=== PATIENT | female | born 1950 | race Caucasian/White ===

== ENCOUNTER 2022-12-21 07:07 | Inpatient (IN) ==
[2022-12-21] MEDS ORDERED: SODIUM CHLORIDE 500 ML IV STA ×2 (07:24→08:37)
--- NOTE | 2022-12-21 07:31 | ED.PDOC ---
General ED Provider: Dr. RODOLFO SARAVIA DO Chief Complaint: Fever Stated Complaint: Patient is a 72 yo F here for body aches and sob Patient arrives afebrile with tachycardia 115 and tachypnea 21 RR and elevated BP Children at bedside report she appeared weak and more ill than a typical cold and brought her to the ED She has a PMHX of non insulin dependent DM2, HTN She deneis falls or injuries She denies chest pressure or chest pain, she admits sob No recent surgeries NKDA Patietn speaking in full sneteces on room air spo2 97% She linda sick contacts and spends most of her time at home caring for with cognitive decline Patient stable will fluid challenge tachycardia gently due to sob and elevated bp Time Seen by Provider: 12/21/22 07:22 Information Source: Patient Primary Care Provider: SATYA ARIAS Nursing and Triage Documentation Reviewed and Agree: Yes Review of Systems Review Of Systems Constitutional: Reports Chills, Fever and Weakness Eyes: Denies Blurred vision or Foreign body sensation Ears, Nose, Mouth, Throat: Denies Ear pain or Nose discharge Respiratory: Reports Cough and Shortness of Breath; Denies Wheezing Cardiac: Denies Chest pain or Syncope GI: Denies Constipated or Diarrhea : Denies Dysuria or Discharge Musculoskeletal: Denies Back pain or Joint pain Skin: Denies Bruising or Change in color Neurological: Reports No symptoms Endocrine: Reports No symptoms Hematologic/Lymphatic: Reports No symptoms All Other Systems: Reviewed and Negative PFSH Female Reproductive History Menstrual Hx Hysterectomy: No Hx Tubal Ligation: No Physical Exam Physical Exam Appearance: Reports Well-appearing, Well-nourished and Obese Ill-appearing: Not Applicable Pain Distress: Not Applicable Eyes: Reports MIKEY and EOMI ENT: Reports Ears normal and Nose normal Neck: Supple Respiratory: Reports Airway patent and Breath sounds clear; Denies Crackles, Rhonchi or Wheezes Cardiovascular: Reports Pulses normal and Tachycardia GI/: Reports Soft and Nontender Musculoskeletal: Reports Normal strength and ROM intact Skin: Reports Warm and Dry Neurological: Reports Sensation intact and Motor intact Psychiatric: Reports Affect appropriate and Mood appropriate Interpretation EKG Interpretation EKG Interpretation By: ED Physician Time of EKG #1: 07:31 Rate: Tachy Interpretation: Sinus tachycardai rate 126 no stemi qt wnl Critical Care Note Critical Care Note Total Critical Care Time (mins): 0 Course Course 12/21/22 07:25 12/21/22 07:25 Orders, Labs, Meds: Lab Review 12/21/22 12/21/22 12/21/22 07:25 07:38 08:45 WBC 14.37 H RBC 4.76 Hgb 12.7 Hct 39.1 MCV 82.1 MCH 26.7 L MCHC 32.5 RDW Coeff of Scarlet 14.0 Plt Count 283 Immature Gran % (Auto) 0.5 Neut % (Auto) 87.0 H Lymph % (Auto) 8.4 L [place] % (Auto) 3.3 Eos % (Auto) 0.4 Baso % (Auto) 0.4 Neut # (Auto) 12.5 H Lymph # (Auto) 1.2 [place] # (Auto) 0.5 Eos # (Auto) 0.1 Baso # (Auto) 0.1 Immature Gran # (Auto) 0.1 Sodium 136.5 Potassium 3.59 Chloride 105.3 Carbon Dioxide 19.7 L Anion Gap 15.09 BUN 12.7 Creatinine 0.66 Estimated GFR (MDRD) 89.00 BUN/Creatinine Ratio 19.24 Glucose 185.4 H Lactic Acid 2.97 H 2.58 H D Calcium 9.45 Total Bilirubin 1.42 H AST 52.1 H ALT 37.0 H Alkaline Phosphatase 105.4 Troponin I < 0.012 Total Protein 8.13 Albumin 4.60 Globulin 3.53 Albumin/Globulin Ratio 1.30 Influ A Molecular Assay Negative by naat Influ B Molecular Assay Negative by naat RSV Antigen Negative by naat SARS CoV-2 RNA Rapid CHERELLE Negative Orders Category Date Time Status ADMIT PATIENT INPATIENT .TO [facility] (MONITORED BED) ADMISSION 12/21/22 10:18 Active EKG-(ED ONLY) Stat CARDIO 12/21/22 07:23 Completed ACTIVITY .Up With Assistance CARE 12/21/22 10:18 Active GIVE HS SNACK 2100 CARE 12/21/22 10:19 Active INTAKE & OUTPUT Q8HR CARE 12/21/22 10:18 Active NPO REMINDER: IMAGING ONCE CARE 12/21/22 07:24 Completed TELEMETRY MONITORING TELE CARE 12/21/22 10:18 Active VITAL SIGNS Q4HR CARE 12/21/22 10:19 Active ADA 1800 ERIKA. DIET DIETARY 12/21/22 Lunch Ordered HS SNACK DIETARY 12/21/22 Dinner Ordered BLOOD CULTURE Stat LAB 12/21/22 09:03 Received CBC W/ AUTO DIFF DAILY@0600 LAB 12/22/22 06:00 Ordered CBC W/ AUTO DIFF DAILY@0600 LAB 12/23/22 06:00 Ordered CBC W/ AUTO DIFF Stat LAB 12/21/22 07:25 Completed COMPREHENSIVE METABOLIC PANEL DAILY@0600 LAB 12/22/22 06:00 Ordered COMPREHENSIVE METABOLIC PANEL DAILY@0600 LAB 12/23/22 06:00 Ordered COMPREHENSIVE METABOLIC PANEL Stat LAB 12/21/22 07:25 Completed FLU A & B MOLECULAR [FLU A/B MOLECULAR] Stat LAB 12/21/22 07:25 Completed LACTIC ACID Stat LAB 12/21/22 07:25 Completed LACTIC ACID Stat LAB 12/21/22 08:45 Completed LACTIC ACID Timed LAB 12/21/22 10:45 Ordered LEGIONELLA URINARY ANTIGEN Stat LAB 12/21/22 10:42 Ordered MISCELLANEOUS SEND OUT Routine LAB 12/21/22 10:42 Uncollected MOLECULAR GROUP A STREP Stat LAB 12/21/22 07:25 Completed PROCALCITONIN Stat LAB 12/21/22 10:32 Received RSV Stat LAB 12/21/22 07:38 Completed SARS COV-2 RNA RAPID CHERELLE Stat LAB 12/21/22 07:25 Completed TROPONIN I Stat LAB 12/21/22 07:25 Completed UA [URINALYSIS C & S IF INDICATED] Stat LAB 12/21/22 07:24 Uncollected Enalapril Maleate [Vasotec] Meds 12/21/22 07:58 Discontinued 20 mg PO ONCE ONE Levofloxacin/D5w [Levaquin 750 mg/150 ml D5w] Meds 12/21/22 08:35 Discontinued 750 mg in 150 ml IV ONCE Sodium Chloride 0.9% [Sodium Chloride] 1,000 ml Meds 12/21/22 08:16 Discontinued IV BOLUS Sodium Chloride 0.9% [Sodium Chloride] 500 ml Meds 12/21/22 07:24 Discontinued IV BOLUS Sodium Chloride 0.9% [Sodium Chloride] 500 ml Meds 12/21/22 08:[address] CHEST PE PROTOCOL Stat RADS 12/21/22 07:23 Completed Medications Discontinued Medications Generic Name Dose Route Start Last Admin Trade Name Freq PRN Reason Stop Dose Admin Enalapril Maleate 20 mg 12/21/22 07:58 12/21/22 08:19 Enalapril Maleate 20 Mg Tablet PO 12/21/22 07:59 20 mg ONCE ONE Administration Sodium Chloride 500 mls @ 500 mls/hr 12/21/22 07:24 12/21/22 07:30 Sodium Chloride IV 12/21/22 08:23 500 mls/hr BOLUS STA Administration Sodium Chloride 1,000 mls @ 1,000 mls/hr 12/21/22 08:16 12/21/22 08:19 Sodium Chloride IV 12/21/22 09:15 1,000 mls/hr BOLUS STA Administration Levofloxacin/Dextrose 750 mg in 150 mls @ 100 mls/hr 12/21/22 08:35 12/21/22 09:19 Levaquin 750 Mg/150 Ml D5w IV 12/21/22 10:04 100 mls/hr ONCE ONE Administration Sodium Chloride 500 mls @ 500 mls/hr 12/21/22 08:37 Sodium Chloride IV 12/21/22 09:36 BOLUS STA Vital Signs: Temp Pulse Resp BP Pulse Ox 12/21/22 07:45 119 H 25 H 193/101 H 96 12/21/22 07:14 99.9 F 117 H 22 H 192/131 H 95 With leukocytosis 14, lactic about 3, will order BS abx and fluid bolus equivalent to ideal body wieght at 70kg, gentle fludis due to elevated BP and sob complaint MDM: Patient is a 72 yo F here for cough body aches and palpitations Patient afebrile with elevated HR and BP Exam concerning for SIRS + criteria 3+ labs and 2 images reviewed by me Consults to Hospitalist team WDX: R middle/lower Pneumonia, sepsis, cough discomfort acute condition high complexity DDX: I considered shock, pneumothorax, stemi but these are less likely SDOH: Patient will improve with admission Levaquin and sepsis bundle ordered All questions answered Patient amenable to admission Discharge Plan Discharge Patient Disposition: ADMITTED INPATIENT Discharge Problem: Leukocytosis, Elevated lactic acid level, Sepsis, Pneumonia Did you review [place] [employer] for ALL controlled substances?: Not Applicable ED Provider: RODOLFO SARAVIA Condition: Good Physician Progress Note: []
[2022-12-21 07:56] LABS: SARS COV-2 RNA RAPID NAAT NEGATIVE (NEGATIVE)
[2022-12-21] MEDS ORDERED: VASOTEC PO ONE (07:58)
[2022-12-21 08:01] LABS: MOLECULAR FLU A NEGATIVE BY NAAT (NEGATIVE); MOLECULAR FLU B NEGATIVE BY NAAT (NEGATIVE)
[2022-12-21 08:07] LABS: ALKALINE PHOSPHATASE 105.4 U/L (53-141); ASPARTATE AMINO TRANSFERASE 52.1 U/L (14-36); BILIRUBIN,TOTAL 1.42 mg/dL (0.2-1.3); BLOOD UREA NITROGEN 12.7 mg/dL (7-17); CALCIUM 9.45 mg/dL (8.4-10.2); CARBON DIOXIDE 19.7 mmol/L (22-30.0); CHLORIDE 105.3 mmol/L (98-107); CREATININE 0.66 mg/dL (0.60-1.30); GLUCOSE 185.4 mg/dL (74-106); POTASSIUM 3.59 mmol/L (3.5-5.1); SODIUM 136.5 mmol/L (134.5-145); TOTAL PROTEIN 8.13 g/dL (6.3-8.2)
[2022-12-21] MEDS ORDERED: SODIUM CHLORIDE 1,000 ML IV STA (08:16)
[2022-12-21 08:27] LABS: TROPONIN I < 0.012 ng/ml (0.0000-0.120)
[2022-12-21 08:28] LABS: RSV MOLECULAR NEGATIVE BY NAAT (NEGATIVE)
[2022-12-21 08:30] LABS: BASOPHILS # (AUTO) 0.1 K/uL (0-0.2); BASOPHILS % (AUTO) 0.4 % (0.0-3.0); EOSINOPHILS # (AUTO) 0.1 K/ul (0.0-0.7); EOSINOPHILS % (AUTO) 0.4 % (0.0-7.0); HEMATOCRIT 39.1 % (37.0-47.0); HEMOGLOBIN 12.7 g/dl (12.0-16.0); IMMATURE GRANULOCYTE # (AUTO) 0.1 (0.0-1.0); IMMATURE GRANULOCYTE % (AUTO) 0.5 % (0.0-5.0); LYMPHOCYTES # (AUTO) 1.2 K/uL (0.60-3.4); LYMPHOCYTES % (AUTO) 8.4 (10.0-50.0); MEAN CORPUSCULAR HEMOGLOBIN 26.7 pg (27.0-31.0); MEAN CORPUSCULAR HGB CONC 32.5 (31.8-35.4); MEAN CORPUSCULAR VOLUME 82.1 fl (81.0-99.0); MONOCYTES # (AUTO) 0.5 K/uL (0.4-2.0); MONOCYTES % (AUTO) 3.3 (0-10); NEUTROPHILS # (AUTO) 12.5 K/ul (2.0-6.9); PLATELET COUNT 283 10^3/uL (140-440); RED BLOOD COUNT 4.76 10^6/ul (4.20-5.40); WHITE BLOOD COUNT 14.37 K/ul (4.6-10.2)
[2022-12-21] MEDS ORDERED: LEVAQUIN 750 MG/150 ML D5W 750 MG/150 ML BAG IV ONE (08:35)
--- NOTE | 2022-12-21 10:20 | PCM ---
Date of Service Date Seen by Provider: 12/21/22 Time Seen by Provider: 12:00 Admit Day/Time Admission Date: 12/21/22 Admission Time: 10:18 Reason for Admission Chief Complaint: SEPSIS, CAP Hospital Provider Hospital Provider: Kathy Palmer PA-C, [facility] Primary Care Physician Primary Care Physician: SATYA ARIAS History of Present Illness History of Present Illness: Patient is a 72 year old female from home with pmhx of hypertension, hyperlipidemia, and DMT2 who presented to ER with cough and fever. She's had a cough last two days and then last night felt terrible. Was coughing all night. Woke up with a fever. Family member states it was so high she was a little confused. But they aren't sure if it was accurate because she was drinking coffee. She states she had severe chills. She took ibuprofen at home. In the ER she was tachycardic, temp 99.9, WBC 14, lactic 2.97, and CTA showed RLL pneumonia. She was given fluids and levaquin. She was admitted to [facility]. Case Discussed With Case Discussed With: Patient's case was discussed with the ER Physicians, Dr. Diaz. [facility] Medical History Degenerative disc disease, cervical M50.30 - Other cervical disc degeneration, unspecified cervical region (ICD- 10) Dyslipidemia E78.5 - Hyperlipidemia, unspecified (ICD-10) Diabetes mellitus type 2, controlled E11.9 - Type 2 diabetes mellitus without complications (ICD-10) Hypertension I10 - Essential (primary) hypertension (ICD-10) Surgical History Hx of appendectomy Z90.49 - Acquired absence of other specified parts of digestive tract (ICD- 10) Family History Mother Parkinsons Mother Breast cancer Social History Smoking and tobacco status: Former smoker Passive smoking exposure: No Quit status: has quit before Allergies Allergies Allergy/AdvReac Type Severity Reaction Status Date / Time No Known Allergies Allergy Unverified 12/21/22 07:26 Current Medications Home Medications cyclobenzaprine 10 mg tablet 10 mg PO BEDTIME 12/21/22 [History Confirmed 12/21/22 Last Taken Unknown] enalapril maleate 20 mg tablet 20 mg PO DAILY 12/21/22 [History Confirmed 12/21/22 Last Taken Unknown] metformin 750 mg tablet,extended release 24 hr 1,500 mg PO DAILY 12/21/22 [History Confirmed 12/21/22 Last Taken Unknown] pravastatin 20 mg tablet 20 mg PO DAILY 12/21/22 [History Confirmed 12/21/22 Last Taken Unknown] Home Albuterol Sulfate (Albuterol Sulfate 0.083% Vial.Neb) 2.5 mg NEB RTQ6H PRN PRN Reason: Wheezing Cyclobenzaprine HCl (Cyclobenzaprine Hcl 10 Mg Tablet) 10 mg PO BEDTIME CLEO Enalapril Maleate (Enalapril Maleate 20 Mg Tablet) 20 mg PO DAILY CLEO Enoxaparin Sodium (Enoxaparin Sodium 40 Mg/0.4 Ml Syr) 40 mg SUBCUT DAILY [facility] Last Admin: 12/21/22 14:09 Dose: 40 mg Levofloxacin/Dextrose (Levaquin 750 Mg/150 Ml D5w) 750 mg in 150 mls @ 100 mls/hr IV DAILY CLEO Stop: 12/25/22 08:59 Lactated Ringer's (Lactated Ringers) 1,000 mls @ 100 mls/hr IV .Q10H CLEO Last Admin: 12/21/22 14:09 Dose: 100 mls/hr Pravastatin Sodium (Pravastatin Sodium 20 Mg Tablet) 20 mg PO DAILY [facility] Discontinued Medications Enalapril Maleate (Enalapril Maleate 20 Mg Tablet) 20 mg PO ONCE ONE Stop: 12/21/22 07:59 Last Admin: 12/21/22 08:19 Dose: 20 mg Sodium Chloride (Sodium Chloride) 500 mls @ 500 mls/hr IV BOLUS STA Stop: 12/21/22 08:23 Last Admin: 12/21/22 07:30 Dose: 500 mls/hr Sodium Chloride (Sodium Chloride) 1,000 mls @ 1,000 mls/hr IV BOLUS STA Stop: 12/21/22 09:15 Last Infusion: 12/21/22 09:19 Dose: Infused Levofloxacin/Dextrose (Levaquin 750 Mg/150 Ml D5w) 750 mg in 150 mls @ 100 mls/hr IV ONCE ONE Stop: 12/21/22 10:04 Last Admin: 12/21/22 09:19 Dose: 100 mls/hr Sodium Chloride (Sodium Chloride) 500 mls @ 500 mls/hr IV BOLUS STA Stop: 12/21/22 09:36 Last Admin: 12/21/22 12:20 Dose: 500 mls/hr Review of Systems Constitutional: Reports Fever, Chills, Weakness and Loss of appetite Head: Reports Normocephalic and Atraumatic Throat: Denies Sore Throat or Difficulty Swallowing Cardiovascular: Denies Chest pain, Chest Pressure or Edema Respiratory: Reports Cough, Shortness of air, Wake Coughing at Night and Wheeze Gastrointestinal: Denies Nausea, Vomiting, Diarrhea or Abdominal pain Dermatologic: Denies Rashes Neurological: Reports Weakness; Denies Headache or Syncope Physical examination Most Recent Vital Signs: Most Recent Vital Signs Temperature 99.9 F 12/21/22 07:14 Temperature Source Oral 12/21/22 07:14 Pulse Rate 119 H 12/21/22 07:45 Respiratory Rate 25 H 12/21/22 07:45 Blood Pressure 193/101 H 12/21/22 07:45 O2 Sat by Pulse Oximetry 96 12/21/22 07:45 Height 5 ft 5 in 12/21/22 07:14 Weight 197 lb 5.019 oz 12/21/22 07:14 Appearance: Positive Well-appearing, Well-nourished, No Apparent Distress and Alert and Oriented x3 Skin: Positive [place], Warm and Good Turgor; Negative Rashes HEENT: Positive Normocephalic and Atraumatic Neck: Positive Supple and Midline Trachea Chest/Lungs: Positive Symmetrical With Equal Breath Sounds and Rhonci (+RLL rhonchi, mild ); Negative Rales or Wheezes Heart: Positive RRR GI/: Positive Soft, Nontender and Bowel Sounds Normal Extremities: Negative Edema Neurological: Positive Cranial Nerves Intact, Alert and Oriented Psychiatric: Positive Oriented x4, Appropriate Mood and Appropriate Affect Labs This Visit Labs This Visit: Labs This Visit 12/21/22 12/21/22 12/21/22 07:25 07:38 08:45 WBC 14.37 H RBC 4.76 Hgb 12.7 Hct 39.1 MCV 82.1 MCH 26.7 L MCHC 32.5 RDW Coeff of Scarlet 14.0 Plt Count 283 Immature Gran % (Auto) 0.5 Neut % (Auto) 87.0 H Lymph % (Auto) 8.4 L [place] % (Auto) 3.3 Eos % (Auto) 0.4 Baso % (Auto) 0.4 Neut # (Auto) 12.5 H Lymph # (Auto) 1.2 [place] # (Auto) 0.5 Eos # (Auto) 0.1 Baso # (Auto) 0.1 Immature Gran # (Auto) 0.1 Sodium 136.5 Potassium 3.59 Chloride 105.3 Carbon Dioxide 19.7 L Anion Gap 15.09 BUN 12.7 Creatinine 0.66 Estimated GFR (MDRD) 89.00 BUN/Creatinine Ratio 19.24 Glucose 185.4 H Lactic Acid 2.97 H 2.58 H D Calcium 9.45 Total Bilirubin 1.42 H AST 52.1 H ALT 37.0 H Alkaline Phosphatase 105.4 Troponin I < 0.012 Total Protein 8.13 Albumin 4.60 Globulin 3.53 Albumin/Globulin Ratio 1.30 Influ A Molecular Assay Negative by naat Influ B Molecular Assay Negative by naat RSV Antigen Negative by naat SARS CoV-2 RNA Rapid CHERELLE Negative Microbiology This Visit 12/21/22 07:25 Throat Group A Strep Molecular Assay - Final Imaging Imaging: EXAM: CT ANGIOGRAM CHEST WITH INTRAVENOUS CONTRAST 12/21/2022. MULTI PLANAR REFORMATTED IMAGES OBTAINED. MIP AND THREE-DIMENSIONAL RECONSTRUCTED IMAGES PROVIDED HISTORY: Cough. Tachycardia COMPARISON: None. FINDINGS: The heart size appears within normal limits. There is no pericardial effusion. There are no pulmonary arterial filling defects to suggest pulmonary embolus. Patchy nodular and ground-glass infiltrate extends throughout the right lower lobe. This is most compatible with pneumonia. No pleural effusion. No pneumothorax. Limited views of the upper abdomen shows surgical changes of cholecystectomy. No acute osseous abnormality. IMPRESSION: 1. No evidence of pulmonary embolus. 2. Right lower lobe pneumonia. Review Statement Review Statement: I have independently reviewed and interpreted the labs/EKGs/imaging that were ordered by the ER provider. I have reviewed all outside records that are available currently in our EMR including imaging/notes/labs from previous visits. Plan Plan: 1. Sepsis in setting of CAP - Pt received 2L NS, lactic elevated although the 2 hour repeat was mistakenly canceled by lab, they will draw it now, blood cultures pending. Procal negative. LR at 100 ml/hr ordered. Pt vitals stable. Levaquin ordered. 2. CAP, right, bacterial - Plan as above. Legionella and strep pneumo ordered. Albuterol nebs prn. 3. Hypertension - Continue home meds 4. Hyperlipidemia - Continue home meds 5. DMT2 - Hold metformin. DVT Prophylaxis: Lovenox Time Spent: Greater than 80 minutes spent with patient, 50% of the time spent with this patient was devoted to counseling and coordination of care. [facility] minutes spent discussing advance care planning. FULL CODE Admit to: Inpatient Discussed Plan of Care with Dr. Nu Hunt.
--- NOTE | 2022-12-21 10:33 | CT ---
EXAM: CT ANGIOGRAM CHEST WITH INTRAVENOUS CONTRAST 12/21/2022. MULTI PLANAR REFORMATTED IMAGES OBTA INED. MIP AND THREE-DIMENSIONAL RECONSTRUCTED IMAGES PROVIDED HISTORY: Cough. Tachycardia COMPARISON: None. FINDINGS: The heart size appears within normal limits. There is no pericardial effusion. There are no pulmonary arterial filling defects to suggest pulmonary embolus. Patchy nodular and ground-glass infiltrate extends throughout the right lower lobe. This is most co mpatible with pneumonia. No pleural effusion. No pneumothorax. Limited views of the upper abdomen shows surgical changes of cholecystectomy. No acute osseous abnormality. IMPRESSION: 1. No evidence of pulmonary embolus. 2. Right lower lobe pneumonia. All CT scans are performed using dose optimization techniques as appropriate to the performed exam an d include at least one of the following: Automated exposure control, adjustment of the mA and/or kV according t o size, and the use of iterative reconstruction technique.
[2022-12-21 11:32] VITALS: BMI 32.1
[2022-12-21] MEDS ORDERED: ALBUTEROL 0.083% NEB NEB PRN (12:43)
[2022-12-21 13:25] LABS: BILIRUBIN,URINE Negative (NEGATIVE); CLARITY,URINE Clear (CLEAR); COLOR,URINE Yellow (YELLOW); GLUCOSE, URINE (UA) Negative (NEGATIVE); KETONES,URINE Negative (NEGATIVE); LEUKOCYTE ESTERASE ,URINE Negative (NEGATIVE); NITRITE,URINE Negative (NEGATIVE); PH,URINE 5.5 (5-9); PROTEIN,URINE Negative (NEGATIVE); URINE, BLOOD Trace-intact (NEGATIVE); UROBILINOGEN,URINE 0.2 (0.2)
[2022-12-21 13:31] LABS: URINE RBC, MICROSCOPIC 0-2 (0-2)
[2022-12-21] MEDS: LOVENOX SUBCUT SCH (14:09)
[2022-12-21] MEDS: LACTATED RINGERS 1,000 ML IV SCH ×2 (14:09→23:49)
[2022-12-21] MEDS ORDERED: MOTRIN PO ONE (17:01)
[2022-12-21] MEDS ORDERED: TYLENOL PO PRN (17:04)
[2022-12-21] MEDS ORDERED: TYLENOL ONE (17:07)
[2022-12-21] MEDS: TYLENOL PO PRN (17:12)
[2022-12-21] MEDS: FLEXERIL PO SCH (20:49)
[2022-12-22 05:29] LABS: BASOPHILS # (AUTO) 0.1 K/uL (0-0.2); BASOPHILS % (AUTO) 0.4 % (0.0-3.0); EOSINOPHILS # (AUTO) 0.1 K/ul (0.0-0.7); EOSINOPHILS % (AUTO) 0.8 % (0.0-7.0); HEMATOCRIT 33.6 % (37.0-47.0); HEMOGLOBIN 10.9 g/dl (12.0-16.0); IMMATURE GRANULOCYTE # (AUTO) 0.2 (0.0-1.0); MEAN CORPUSCULAR HEMOGLOBIN 26.8 pg (27.0-31.0); MEAN CORPUSCULAR HGB CONC 32.4 (31.8-35.4); MEAN CORPUSCULAR VOLUME 82.6 fl (81.0-99.0); MONOCYTES # (AUTO) 0.9 K/uL (0.4-2.0); MONOCYTES % (AUTO) 5.1 (0-10); NEUTROPHILS # (AUTO) 13.6 K/ul (2.0-6.9); NEUTROPHILS % (AUTO) 80.7 % (42.2-75.2); PLATELET COUNT 227 10^3/uL (140-440); RDW COEFFICIENT OF VARIATION 14.3 % (11.6-14.8); RED BLOOD COUNT 4.07 10^6/ul (4.20-5.40); WHITE BLOOD COUNT 16.81 K/ul (4.6-10.2)
[2022-12-22 05:44] LABS: ALANINE AMINOTRANSFERASE 27.4 U/L (0-35); ALBUMIN 3.89 g/dL (3.5-5.0); ALKALINE PHOSPHATASE 92.2 U/L (53-141); ASPARTATE AMINO TRANSFERASE 26.6 U/L (14-36); BILIRUBIN,TOTAL 2.26 mg/dL (0.2-1.3); BLOOD UREA NITROGEN 6.9 mg/dL (7-17); CALCIUM 8.97 mg/dL (8.4-10.2); CHLORIDE 107.5 mmol/L (98-107); CREATININE 0.53 mg/dL (0.60-1.30); GLUCOSE 143.9 mg/dL (74-106); POTASSIUM 3.49 mmol/L (3.5-5.1); SODIUM 138.2 mmol/L (134.5-145); TOTAL PROTEIN 7.3 g/dL (6.3-8.2)
[2022-12-22] MEDS ORDERED: VASOTEC ONE (06:11)
[2022-12-22] MEDS: VASOTEC PO SCH ×2 (06:13→10:01)
--- NOTE | 2022-12-22 09:16 | PCM.PROG ---
Date/Time Seen Date Seen by Provider: 12/22/22 Time Seen by Provider: 09:10 Provider [facility] Chief Complaint Chief Complaint: SEPSIS, CAP Subjective Subjective: Patient states she's not feeling well today. Still coughing, feels very weak. Has a with dementia at home, daughter is helping care for him at the time. Pt hypertensive this morning. Objective Appearance: Positive No Apparent Distress and Alert and Oriented x3 Chest/Lungs: Positive Clear to Auscultation Bilaterally; Negative Rales, Rhonci or Wheezes Heart: Positive RRR GI/: Positive Soft, Nontender, Bowel Sounds Normal and No Distention Neurological: Positive Cranial Nerves Intact, Alert, Oriented and Other (+generalized weakness. ) Additional Findings: No edema. Vital Signs Vital Signs: Vital Signs: Last 24 Hours 12/21/22 11:06 12/21/22 11:11 12/21/22 11:21 Temperature 98.2 F Temperature Source Oral Pulse Rate 106 H Pulse Rate [Apical] 112 H Respiratory Rate 20 16 Blood Pressure Blood Pressure Mean Blood Pressure Left Arm 187/100 Blood Pressure Location Blood Pressure Position Supine O2 Sat by Pulse Oximetry 98 Oxygen Delivery Method Room Air Room Air Height 5 ft 5 in Weight 193 lb 8 oz Telemetry Type Remote Telemetry Telemetry Monitoring Started Telemetry Heart Rate 90 EKG PA Interval 0.16 EKG QRS Interval 0.03 L Telemetry Strip Reading SR 12/21/22 13:00 12/21/22 14:00 12/21/22 19:00 Temperature 99.8 F Temperature Source Oral Pulse Rate 98 Pulse Rate [Apical] Respiratory Rate 18 Blood Pressure 156/83 H Blood Pressure Mean 107 Blood Pressure Left Arm Blood Pressure Location Left Arm Blood Pressure Position O2 Sat by Pulse Oximetry 98 Oxygen Delivery Method Room Air Height Weight Telemetry Type Remote Telemetry Remote Telemetry Telemetry Monitoring Continues Continues Telemetry Heart Rate 93 86 EKG PA Interval 0.17 0.16 EKG QRS Interval 0.06 0.08 Telemetry Strip Reading SR SR 12/21/22 20:00 12/21/22 21:58 12/21/22 22:00 Temperature 98.2 F Temperature Source Oral Pulse Rate 95 Pulse Rate [Apical] Respiratory Rate 19 17 Blood Pressure 196/95 H 154/77 H Blood Pressure Mean 128 102 Blood Pressure Left Arm Blood Pressure Location Left Arm Right Arm Blood Pressure Position Supine Supine O2 Sat by Pulse Oximetry 97 Oxygen Delivery Method Room Air Room Air Room Air Height Weight Telemetry Type Telemetry Monitoring Telemetry Heart Rate EKG PA Interval EKG QRS Interval Telemetry Strip Reading 12/22/22 01:00 12/22/22 05:16 12/22/22 06:00 Temperature 98.5 F Temperature Source Oral Pulse Rate 101 H Pulse Rate [Apical] Respiratory Rate 16 Blood Pressure 194/100 H Blood Pressure Mean 131 Blood Pressure Left Arm Blood Pressure Location Right Arm Right Arm Blood Pressure Position Supine Supine O2 Sat by Pulse Oximetry 97 Oxygen Delivery Method Room Air Room Air Height Weight Telemetry Type Remote Telemetry Telemetry Monitoring Continues Telemetry Heart Rate 98 EKG PA Interval 0.17 EKG QRS Interval 0.08 Telemetry Strip Reading SR 12/22/22 07:00 12/22/22 08:13 Temperature Temperature Source Pulse Rate Pulse Rate [Apical] Respiratory Rate Blood Pressure Blood Pressure Mean Blood Pressure Left Arm Blood Pressure Location Blood Pressure Position O2 Sat by Pulse Oximetry Oxygen Delivery Method Height 5 ft 5 in Weight 193 lb Telemetry Type Remote Telemetry Telemetry Monitoring Continues Telemetry Heart Rate 102 H EKG PA Interval 0.13 EKG QRS Interval 0.03 L Telemetry Strip Reading SR Lab Results Lab Results: Lab Results: Last 24 Hours 12/22/22 12/21/22 12/21/22 05:22 12:50 12:30 WBC 16.81 H RBC 4.07 L Hgb 10.9 L Hct 33.6 L MCV 82.6 MCH 26.8 L MCHC 32.4 RDW Coeff of Scarlet 14.3 Plt Count 227 Immature Gran % (Auto) 1.0 Neut % (Auto) 80.7 H Lymph % (Auto) 12.0 [place] % (Auto) 5.1 Eos % (Auto) 0.8 Baso % (Auto) 0.4 Neut # (Auto) 13.6 H Lymph # (Auto) 2.0 Jay # (Auto) 0.9 Eos # (Auto) 0.1 Baso # (Auto) 0.1 Immature Gran # (Auto) 0.2 Sodium 138.2 Potassium 3.49 L Chloride 107.5 H Carbon Dioxide 22.0 Anion Gap 12.19 BUN 6.9 L Creatinine 0.53 L Estimated GFR (MDRD) 114.00 BUN/Creatinine Ratio 13.01 Glucose 143.9 H Lactic Acid 2.87 H D Calcium 8.97 Total Bilirubin 2.26 H AST 26.6 D ALT 27.4 Alkaline Phosphatase 92.2 Total Protein 7.30 Albumin 3.89 Globulin 3.41 Albumin/Globulin Ratio 1.14 Procalcitonin Urine Color Yellow Urine Clarity Clear Urine pH 5.5 Ur Specific [place] 1.010 Urine Protein Negative Urine Glucose (UA) Negative Urine Ketones Negative Urine Blood Trace-intact H Urine Nitrite Negative Urine Bilirubin Negative Urine Urobilinogen 0.2 Ur Leukocyte Esterase Negative Urine Microscopic RBC 0-2 Ur Squamous Epith Cells Not Reportable 12/21/22 12/21/22 10:32 08:45 WBC RBC Hgb Hct MCV MCH MCHC RDW Coeff of Scarlet Plt Count Immature Gran % (Auto) Neut % (Auto) Lymph % (Auto) [place] % (Auto) Eos % (Auto) Baso % (Auto) Neut # (Auto) Lymph # (Auto) [place] # (Auto) Eos # (Auto) Baso # (Auto) Immature Gran # (Auto) Sodium Potassium Chloride Carbon Dioxide Anion Gap BUN Creatinine Estimated GFR (MDRD) BUN/Creatinine Ratio Glucose Lactic Acid 2.58 H D Calcium Total Bilirubin AST ALT Alkaline Phosphatase Total Protein Albumin Globulin Albumin/Globulin Ratio Procalcitonin < 0.05 Urine Color Urine Clarity Urine pH Ur Specific [place] Urine Protein Urine Glucose (UA) Urine Ketones Urine Blood Urine Nitrite Urine Bilirubin Urine Urobilinogen Ur Leukocyte Esterase Urine Microscopic RBC Ur Squamous Epith Cells Additional Comments Additional Comments: I have independently reviewed and interpreted the labs/EKGs/imaging ordered during this hospital stay. I have reviewed outside records that are available in our EMR that pertain to medical stay including imaging/notes/labs from previous visits. Active Medications Active Medications: Medications Generic Name Dose Route Start Last Admin Trade Name Freq PRN Reason Stop Dose Admin Acetaminophen 650 mg 12/21/22 17:06 12/21/22 17:12 Acetaminophen 325 Mg Tablet PO 650 mg Q6H PRN Administration FEVER/PAIN Albuterol Sulfate 2.5 mg 12/21/22 12:43 Albuterol Sulfate 0.083% Vial.Neb NEB RTQ6H PRN Wheezing Cyclobenzaprine HCl 10 mg 12/21/22 21:00 12/21/22 20:49 Cyclobenzaprine Hcl 10 Mg Tablet PO 10 mg BEDTIME CLEO Administration Enalapril Maleate 20 mg 12/22/22 09:00 12/22/22 06:13 Enalapril Maleate 20 Mg Tablet PO 20 mg DAILY CLEO Administration Enoxaparin Sodium 40 mg 12/21/22 13:00 12/21/22 14:09 Enoxaparin Sodium 40 Mg/0.4 Ml Syr SUBCUT 40 mg DAILY CLEO Administration Levofloxacin/Dextrose 750 mg in 150 mls @ 100 mls/hr 12/22/22 09:00 Levaquin 750 Mg/150 Ml D5w IV 12/25/22 08:59 DAILY CLEO Lactated Ringer's 1,000 mls @ 100 mls/hr 12/21/22 12:30 12/21/22 23:49 Lactated Ringers IV 100 mls/hr .Q10H CLEO Administration Pravastatin Sodium 20 mg 12/22/22 09:00 Pravastatin Sodium 20 Mg Tablet PO DAILY CLEO Plan Plan: 1. Sepsis in setting of CAP - Blood cultures pending. Procal negative. Pt vitals stable. Levaquin ordered. WBC count worse today mildly. Stop fluids, pt eating and drink well. Avoid fluid overload. 2. CAP, right, bacterial - Plan as above. Legionella and strep pneumo ordered. Albuterol nebs prn. 3. Hypertension - Continue home meds. Will consider increasing enalapril if BP remains elevated. 4. Hyperlipidemia - Continue home meds 5. DMT2 - Hold metformin. Review Statement Review Statement: I have personally discussed and reviewed the patient's visit/currently labs/imaging/decision making with Dr. Hunt, my supervising attending. Greater that 50 minutes spent with patient, 50% of the time spent with this patient was devoted to counseling and coordination of care.
[2022-12-22] MEDS ORDERED: K-DUR PO ONE (09:19)
[2022-12-22] MEDS: LOVENOX SUBCUT SCH (09:39)
[2022-12-22] MEDS: PRAVACHOL PO SCH (09:39)
[2022-12-22] MEDS: LEVAQUIN 750 MG/150 ML D5W 750 MG/150 ML BAG IV SCH (09:39)
[2022-12-22] MEDS: LACTATED RINGERS 1,000 ML IV SCH (13:30)
[2022-12-22] MEDS: TYLENOL PO PRN (13:48)
[2022-12-22] MEDS ORDERED: VASOTEC PO STA (15:05)
[2022-12-22] MEDS: FLEXERIL PO SCH (20:24)
[2022-12-22] MEDS: HYDRALAZINE HCL IVP PRN (22:14)
[2022-12-23 05:58] LABS: HEMATOCRIT 32.9 % (37.0-47.0); HEMOGLOBIN 10.9 g/dl (12.0-16.0); MEAN CORPUSCULAR HEMOGLOBIN 27.6 pg (27.0-31.0); MEAN CORPUSCULAR HGB CONC 33.1 (31.8-35.4); MEAN CORPUSCULAR VOLUME 83.3 fl (81.0-99.0); PLATELET COUNT 197 10^3/uL (140-440); RDW COEFFICIENT OF VARIATION 14.2 % (11.6-14.8); RED BLOOD COUNT 3.95 10^6/ul (4.20-5.40); WHITE BLOOD COUNT 16.07 K/ul (4.6-10.2)
[2022-12-23 06:04] LABS: ALANINE AMINOTRANSFERASE 24.4 U/L (0-35); ALBUMIN 3.98 g/dL (3.5-5.0); ALKALINE PHOSPHATASE 119.4 U/L (53-141); BILIRUBIN,TOTAL 2.78 mg/dL (0.2-1.3); BLOOD UREA NITROGEN 6.6 mg/dL (7-17); CALCIUM 9.24 mg/dL (8.4-10.2); CARBON DIOXIDE 21.2 mmol/L (22-30.0); CHLORIDE 103.9 mmol/L (98-107); CREATININE 0.53 mg/dL (0.60-1.30); GLUCOSE 148.5 mg/dL (74-106); POTASSIUM 3.35 mmol/L (3.5-5.1); SODIUM 134.5 mmol/L (134.5-145); TOTAL PROTEIN 7.77 g/dL (6.3-8.2)
[2022-12-23 06:46] LABS: ANISOCYTOSIS NOT PRESENT (NOT PRESENT); PLATELET ESTIMATE 422.4
[2022-12-23] MEDS ORDERED: K-DUR PO ONE (08:21)
[2022-12-23] MEDS: LOVENOX SUBCUT SCH (08:45)
[2022-12-23] MEDS: LEVAQUIN 750 MG/150 ML D5W 750 MG/150 ML BAG IV SCH (08:45)
[2022-12-23] MEDS: PRAVACHOL PO SCH (08:46)
[2022-12-23] MEDS ORDERED: VASOTEC PO SCH (09:00)
[2022-12-23] MEDS: HYDRALAZINE HCL IVP PRN (11:07)
--- NOTE | 2022-12-23 13:35 | PCM.PROG ---
Date/Time Seen Date Seen by Provider: 12/23/22 Time Seen by Provider: 09:00 Provider Provider: KATH[facility] PALMER [facility] Chief Complaint Chief Complaint: SEPSIS, CAP Subjective Subjective: Patient feeling very weak today. Has no appetite. Breathing improving. No events overnight. Drinking well. Objective Appearance: Positive No Apparent Distress and Alert and Oriented x3 Chest/Lungs: Positive Clear to Auscultation Bilaterally; Negative Rales, Rhonci or Wheezes Heart: Positive RRR GI/: Positive Soft, Nontender, Bowel Sounds Normal and No Distention Neurological: Positive Cranial Nerves Intact, Alert, Oriented and Other (+generalized weakness. ) Additional Findings: No edema. Vital Signs Vital Signs: Vital Signs: Last 24 Hours 12/22/22 14:30 12/22/22 15:09 12/22/22 17:51 Temperature 99.8 F 98.0 F Temperature Source Oral Oral Pulse Rate 101 H Respiratory Rate 22 H Blood Pressure 186/84 H 192/98 H Blood Pressure Mean 118 129 Blood Pressure Location Right Arm Right Arm Blood Pressure Position Supine O2 Sat by Pulse Oximetry 99 Oxygen Delivery Method Room Air Room Air Room Air Telemetry Type Telemetry Monitoring Telemetry Heart Rate EKG IA Interval EKG QRS Interval Telemetry Strip Reading 12/22/22 18:08 12/22/22 19:00 12/22/22 20:00 Temperature Temperature Source Pulse Rate Respiratory Rate 18 Blood Pressure 184/96 H Blood Pressure Mean 125 Blood Pressure Location Right Arm Blood Pressure Position Supine O2 Sat by Pulse Oximetry Oxygen Delivery Method Room Air Room Air Telemetry Type Remote Telemetry Telemetry Monitoring Continues Telemetry Heart Rate 100 EKG IA Interval 0.17 EKG QRS Interval 0.05 L Telemetry Strip Reading SR 12/22/22 21:43 12/23/22 01:00 12/23/22 02:00 Temperature 97.1 F L 98 F Temperature Source Oral Temporal Artery Scan Pulse Rate 102 H 103 H Respiratory Rate 19 18 Blood Pressure 208/116 H 188/84 H Blood Pressure Mean 146 118 Blood Pressure Location Left Arm Left Arm Blood Pressure Position Sitting Sitting O2 Sat by Pulse Oximetry 97 99 Oxygen Delivery Method Room Air Room Air Telemetry Type Remote Telemetry Telemetry Monitoring Continues Telemetry Heart Rate 103 H EKG IA Interval 0.15 EKG QRS Interval 0.[address] 12/23/22 05:19 12/23/22 07:00 12/23/22 08:00 Temperature 98.7 F Temperature Source Oral Pulse Rate 98 Respiratory Rate 18 Blood Pressure 156/95 H Blood Pressure Mean 115 Blood Pressure Location Right Arm Blood Pressure Position Supine O2 Sat by Pulse Oximetry 97 Oxygen Delivery Method Room Air Room Air Telemetry Type Remote Telemetry Telemetry Monitoring Continues Telemetry Heart Rate 99 EKG IA Interval 0.20 EKG QRS Interval 0.08 Telemetry Strip Reading SR 12/23/22 10:00 12/23/22 10:45 12/23/22 12:20 Temperature 98 F Temperature Source Oral Pulse Rate 100 Respiratory Rate 20 Blood Pressure 197/97 H 184/98 H 170/85 H Blood Pressure Mean 130 126 113 Blood Pressure Location Left Arm Right Arm Right Arm Blood Pressure Position Sitting Sitting O2 Sat by Pulse Oximetry 99 Oxygen Delivery Method Room Air Room Air Room Air Telemetry Type Telemetry Monitoring Telemetry Heart Rate EKG IA Interval EKG QRS Interval Telemetry Strip Reading 12/23/22 13:00 Temperature Temperature Source Pulse Rate Respiratory Rate Blood Pressure Blood Pressure Mean Blood Pressure Location Blood Pressure Position O2 Sat by Pulse Oximetry Oxygen Delivery Method Telemetry Type Remote Telemetry Telemetry Monitoring Continues Telemetry Heart Rate 99 EKG IA Interval 0.17 EKG QRS Interval 0.07 Telemetry Strip Reading NSR Lab Results Lab Results: Lab Results: Last 24 Hours 12/23/22 05:28 WBC 16.07 H RBC 3.95 L Hgb 10.9 L Hct 32.9 L MCV 83.3 MCH 27.6 MCHC 33.1 RDW Coeff of Scarlet 14.2 Plt Count 197 Neutrophils % (Manual) 81.0 H Band Neutrophils % 6.0 H Lymphocytes % (Manual) 10.0 Monocytes % (Manual) 2.0 Eosinophils % (Manual) 1.0 Platelet Estimate 422.4 Anisocytosis Not present Sodium 134.5 Potassium 3.35 L Chloride 103.9 Carbon Dioxide 21.2 L Anion Gap 12.75 BUN 6.6 L Creatinine 0.53 L Estimated GFR (MDRD) 114.00 BUN/Creatinine Ratio 12.45 Glucose 148.5 H Calcium 9.24 Total Bilirubin 2.78 H AST 24.0 ALT 24.4 Alkaline Phosphatase 119.4 D Total Protein 7.77 Albumin 3.98 Globulin 3.79 Albumin/Globulin Ratio 1.05 Additional Comments Additional Comments: I have independently reviewed and interpreted the labs/EKGs/imaging ordered during this hospital stay. I have reviewed outside records that are available in our EMR that pertain to medical stay including imaging/notes/labs from previous visits. Active Medications Active Medications: Medications Generic Name Dose Route Start Last Admin Trade Name Freq PRN Reason Stop Dose Admin Acetaminophen 650 mg 12/21/22 17:06 12/22/22 13:48 Acetaminophen 325 Mg Tablet PO 650 mg Q6H PRN Administration FEVER/PAIN Albuterol Sulfate 2.5 mg 12/21/22 12:43 Albuterol Sulfate 0.083% Vial.Neb NEB RTQ6H PRN Wheezing Cyclobenzaprine HCl 10 mg 12/21/22 21:00 12/22/22 20:24 Cyclobenzaprine Hcl 10 Mg Tablet PO 10 mg BEDTIME CLEO Administration Enalapril Maleate 30 mg 12/23/22 09:00 12/23/22 08:46 Enalapril Maleate 20 Mg Tablet PO 30 mg DAILY CLEO Administration Enoxaparin Sodium 40 mg 12/21/22 13:00 12/23/22 08:45 Enoxaparin Sodium 40 Mg/0.4 Ml Syr SUBCUT 40 mg DAILY CLEO Administration Hydralazine HCl 10 mg 12/22/22 21:37 12/23/22 11:07 Hydralazine Hcl 20 Mg/Ml Sdv IVP 10 mg Q6H PRN Administration Hypertension Levofloxacin/Dextrose 750 mg in 150 mls @ 100 mls/hr 12/22/22 09:00 12/23/22 08:45 Levaquin 750 Mg/150 Ml D5w IV 12/25/22 08:59 100 mls/hr DAILY CLEO Administration Pravastatin Sodium 20 mg 12/22/22 09:00 12/23/22 08:46 Pravastatin Sodium 20 Mg Tablet PO 20 mg DAILY CLEO Administration Sodium Chloride 1 syr 12/22/22 21:00 12/23/22 12:08 0.9% Sodium Chloride 10 Ml Disp.Syrin IVF 1 syr Q8HR CELO Administration Plan Plan: 1. Sepsis in setting of CAP - Blood cultures pending, negative so far. Procal negative. Pt vitals stable. Levaquin ordered. WBC count elevated still today. 2. CAP, right, bacterial - Plan as above. Legionella and strep pneumo ordered. Albuterol nebs prn. 3. Hypertension - Continue home meds. Enalapril increased. Hydralazine PRN. 4. Hyperlipidemia - Continue home meds 5. DMT2 - Hold metformin. DVT: Lovenox Dispo - Offered discharge to home today however patient is feeling too weak. Will keep another night and reevaluate tomorrow. Review Statement Review Statement: I have personally discussed and reviewed the patient's visit/currently labs/imaging/decision making with Dr. Hunt, my supervising attending. Greater that 50 minutes spent with patient, 50% of the time spent with this patient was devoted to counseling and coordination of care.
[2022-12-23] MEDS: FLEXERIL PO SCH (20:37)
[2022-12-24 06:12] LABS: BASOPHILS # (AUTO) 0.1 K/uL (0-0.2); BASOPHILS % (AUTO) 0.4 % (0.0-3.0); EOSINOPHILS # (AUTO) 0.2 K/ul (0.0-0.7); EOSINOPHILS % (AUTO) 1.3 % (0.0-7.0); HEMATOCRIT 32.7 % (37.0-47.0); HEMOGLOBIN 10.8 g/dl (12.0-16.0); IMMATURE GRANULOCYTE # (AUTO) 0.1 (0.0-1.0); IMMATURE GRANULOCYTE % (AUTO) 0.5 % (0.0-5.0); LYMPHOCYTES # (AUTO) 1.8 K/uL (0.60-3.4); LYMPHOCYTES % (AUTO) 13.8 (10.0-50.0); MEAN CORPUSCULAR HEMOGLOBIN 27.2 pg (27.0-31.0); MEAN CORPUSCULAR VOLUME 82.4 fl (81.0-99.0); MONOCYTES % (AUTO) 7.7 (0-10); NEUTROPHILS # (AUTO) 9.8 K/ul (2.0-6.9); NEUTROPHILS % (AUTO) 76.3 % (42.2-75.2); RDW COEFFICIENT OF VARIATION 14.1 % (11.6-14.8); RED BLOOD COUNT 3.97 10^6/ul (4.20-5.40); WHITE BLOOD COUNT 12.76 K/ul (4.6-10.2)
[2022-12-24 06:15] LABS: PLATELET COUNT 275 10^3/uL (140-440)
[2022-12-24 06:16] LABS: ALANINE AMINOTRANSFERASE 20.3 U/L (0-35); ALBUMIN 3.81 g/dL (3.5-5.0); ALKALINE PHOSPHATASE 120.5 U/L (53-141); ASPARTATE AMINO TRANSFERASE 17.6 U/L (14-36); BILIRUBIN,TOTAL 1.6 mg/dL (0.2-1.3); BLOOD UREA NITROGEN 8.7 mg/dL (7-17); CALCIUM 9.08 mg/dL (8.4-10.2); CHLORIDE 105.6 mmol/L (98-107); CREATININE 0.56 mg/dL (0.60-1.30); GLUCOSE 140.5 mg/dL (74-106); POTASSIUM 3.54 mmol/L (3.5-5.1); SODIUM 136.9 mmol/L (134.5-145); TOTAL PROTEIN 7.76 g/dL (6.3-8.2)
[2022-12-24] MEDS: LEVAQUIN 750 MG/150 ML D5W 750 MG/150 ML BAG IV SCH (08:19)
[2022-12-24] MEDS: PRAVACHOL PO SCH (08:19)
[2022-12-24] MEDS: LOVENOX SUBCUT SCH (08:19)
[2022-12-24] MEDS ORDERED: VASOTEC PO SCH (09:00)
--- NOTE | 2022-12-24 09:31 | DCSUM ---
Admission Diagnosis Admission Diagnosis: 1. Sepsis 2. CAP Discharge Diagnosis Discharge Diagnosis: 1. Sepsis in setting of CAP - ruled out 2. CAP, right, bacterial - Improving 3. Hypertension 4. Hyperlipidemia 5. DMT2 Hospital Provider Hospital Provider: [facility] PAL[facility] Physician Primary Care Physician: SATYA ARIAS Summary of History and Physical Summary of History and Physical: Patient is a 72 year old female from home with pmhx of hypertension, hyperlipidemia, and DMT2 who presented to ER with cough and fever. She's had a cough last two days and then last night felt terrible. Was coughing all night. Woke up with a fever. Family member states it was so high she was a little confused. But they aren't sure if it was accurate because she was drinking coffee. She states she had severe chills. She took ibuprofen at home. In the ER she was tachycardic, temp 99.9, WBC 14, lactic 2.97, and CTA showed RLL pneumonia. She was given fluids and levaquin. She was admitted to [facility]. Hospital Course Subjective: Patient was treated with levaquin, fluids, nebs. WBC improved. Patient felt weak and had no appetite. This improved. She remained on RA. Blood cultures were negative. She felt safe for discharge to home. She has a at home with dementia she cares for. She will be sent on remainder of levaquin. F/u with pcp. Of note her BP was consistently high during stay, she hadn't been checking it at home. Her enalapril was increased to 40 mg. New script sent in. Monitor at home and f/u with pcp. Appearance: Pleasant, No Apparent Distress and Alert HEENT: MMM CVS: No Murmur Abdomen: Soft, Non-Tender and No Distention Respiratory: No Accessory Muscle Use Extremities: No Edema Vital Signs: Most Recent Vital Signs Temperature 99.6 F 12/24/22 05:07 Temperature Source Oral 12/24/22 05:07 Temperature Source Oral 12/21/22 07:14 Pulse Rate 95 12/24/22 05:07 Respiratory Rate 18 12/24/22 05:07 Blood Pressure 151/95 H 12/24/22 05:07 Blood Pressure Mean 113 12/24/22 05:07 Blood Pressure Left Arm 187/100 12/21/22 11:11 Blood Pressure Location Left Arm 12/24/22 05:07 Blood Pressure Position Supine 12/24/22 05:07 O2 Sat by Pulse Oximetry 95 12/24/22 05:07 Oxygen Delivery Method Room Air 12/24/22 05:07 Height 5 ft 5 in 12/22/22 08:13 Weight 193 lb 12/22/22 08:13 Telemetry Type Remote Telemetry 12/24/22 07:00 Telemetry Monitoring Continues 12/24/22 07:00 Telemetry Heart Rate 87 12/24/22 07:00 EKG IN Interval 0.14 12/24/22 07:00 EKG QRS Interval 0.06 12/24/22 07:00 Telemetry Strip Reading SR 12/24/22 07:00 Imaging: EXAM: CT ANGIOGRAM CHEST WITH INTRAVENOUS CONTRAST 12/21/2022. MULTI PLANAR REFORMATTED IMAGES OBTAINED. MIP AND THREE-DIMENSIONAL RECONSTRUCTED IMAGES PROVIDED HISTORY: Cough. Tachycardia COMPARISON: None. FINDINGS: The heart size appears within normal limits. There is no pericardial effusion. There are no pulmonary arterial filling defects to suggest pulmonary embolus. Patchy nodular and ground-glass infiltrate extends throughout the right lower lobe. This is most compatible with pneumonia. No pleural effusion. No pneumothorax. Limited views of the upper abdomen shows surgical changes of cholecystectomy. No acute osseous abnormality. IMPRESSION: 1. No evidence of pulmonary embolus. 2. Right lower lobe pneumonia. Lab Results Last 24 Hours: 12/24/22 05:15 WBC 12.76 H RBC 3.97 L Hgb 10.8 L Hct 32.7 L MCV 82.4 MCH 27.2 MCHC 33.0 RDW Coeff of Scarlet 14.1 Plt Count 275 D Immature Gran % (Auto) 0.5 Neut % (Auto) 76.3 H Lymph % (Auto) 13.8 [place] % (Auto) 7.7 Eos % (Auto) 1.3 Baso % (Auto) 0.4 Neut # (Auto) 9.8 H Lymph # (Auto) 1.8 [place] # (Auto) 1.0 Eos # (Auto) 0.2 Baso # (Auto) 0.1 Immature Gran # (Auto) 0.1 Sodium 136.9 Potassium 3.54 Chloride 105.6 Carbon Dioxide 21.0 L Anion Gap 13.84 BUN 8.7 Creatinine 0.56 L Estimated GFR (MDRD) 107.00 BUN/Creatinine Ratio 15.53 Glucose 140.5 H Calcium 9.08 Total Bilirubin 1.60 H AST 17.6 ALT 20.3 Alkaline Phosphatase 120.5 Total Protein 7.76 Albumin 3.81 Globulin 3.95 Albumin/Globulin Ratio 0.96 Discharge Instructions Discharge Planning: Discharge Planning > [address] Nu Hunt. Discharge Medications: Medications at Discharge (Home Meds & RX) cyclobenzaprine 10 mg tablet 10 mg PO BEDTIME 12/21/22 metformin 750 mg tablet,extended release 24 hr 1,500 mg PO DAILY 12/21/22 pravastatin 20 mg tablet 20 mg PO DAILY 12/21/22 enalapril maleate 20 mg tablet 40 mg (2 x 20 mg) PO DAILY #60 tabs 12/24/22 levofloxacin 750 mg tablet 750 mg PO DAILY #3 tabs 12/24/22 Discharge Plan Discharge Discharge Orders: Discharge Patient (ONCE); Ordered 12/24/22 Ordered By: KATHY PALMER Activity Restrictions/Additional Instructions: DISCHARGE TO HOME DX: PNEUMONIA NEW MEDICATION: LEVOFLOXACIN BY MOUTH 750 MG ONCE A DAY FOR 3 DAYS MEDICATION CHANGES: ENALAPRIL 40 MG BY MOUTH ONCE A DAY (THIS IS A DOSE INCREASE) PHARMACY:[facility] DIET: PROGRESS TOLERATED ACTIVITY: TOLERATED FINISH ENTIRE COURSE OF ANTIBIOTICS MONITOR BLOOD PRESSURE AT HOME AND F/U WITH PCP YOU HAVE A HOSPITAL FOLLOW UP APPOINTMENT WITH DR. ARIAS ON December AT 10:45AM. SHOULD YOU HAVE ANY QUESTIONS OR NEED TO RESCHEDULE YOU CAN CONTACT THEIR OFFICE AT [phone]. Instructions: Community Acquired Pneumonia (GEN), Bacterial Pneumonia (GEN) Care Plan Goals: Problem: Impaired Respiratory Status Goal: Exhibit optimal respiratory function Instructions: Activities as tolerated Apply oxygen as ordered Elevate head of bed Notify MD of increased congestion Patient Disposition: HOME SELF-CARE Prescriptions: New levofloxacin 750 mg tablet 750 mg PO DAILY Qty: 3 0RF Rx Instructions: START 12/25, TAKE DAILY FOR 3 DAYS enalapril maleate 20 mg tablet 40 mg PO DAILY Qty: 60 0RF Rx Instructions: INCREASED DOSE Continued metformin 750 mg tablet extended release 24 hr 1,500 mg PO DAILY Patient Comments: TAKE 2 TABLETS BY MOUTH DAILY WITH BREAKFAST pravastatin 20 mg tablet 20 mg PO DAILY Patient Comments: TAKE 1 TABLET BY MOUTH DAILY cyclobenzaprine 10 mg tablet 10 mg PO BEDTIME Patient Comments: TAKE 1 TABLET BY MOUTH AT BEDTIME Discontinued enalapril maleate 20 mg tablet 20 mg PO DAILY Patient Comments: TAKE 1 TABLET BY MOUTH DAILY Did you review [place] [employer]ER SUPERVISOR for ALL controlled substances?: Not Applicable Discussed opioids are addictive and Narcan is available by prescription or from pharmacy.: No Condition: Good
[2022-12-24 10:15] VITALS: BP 149/84; PULSE 88; RESP 16; TEMP 97.4
== END 2022-12-24 11:50 | disposition home or self-care (01) | DRG 871 ==
LOC: ED 07:07 → MEDSURG B 10:47
PROVIDERS: ADMIT Hospitalist; ATTEND Physician Assistant
DX: R00.0 Tachycardia, unspecified; E11.9 Type 2 diabetes mellitus without complications; J18.9 Pneumonia, unspecified organism; R05.9 Cough, unspecified; I10 Essential (primary) hypertension; D72.829 Elevated white blood cell count, unspecified; R50.9 Fever, unspecified; Z20.822 Contact with and (suspected) exposure to COVID-19; R53.1 Weakness; A41.9 Sepsis, unspecified organism; R74.01 Elevation of levels of liver transaminase levels; R00.2 Palpitations; E78.5 Hyperlipidemia, unspecified

== ENCOUNTER 2025-02-08 17:32 | Observation (INO) ==
--- NOTE | 2025-02-08 17:59 | DI ---
EXAM: CHEST RADIOGRAPH TECHNIQUE: Single frontal chest radiograph. HISTORY: Cough. COMPARISON: 04/14/2024 FINDINGS: The lungs are clear. The heart size is normal. There is no pleural effusion. There is no pneumothorax. IMPRESSION: 1. Normal chest radiograph.
--- NOTE | 2025-02-08 18:00 | ED.PDOC ---
General HPI ED Provider: Dr. KIM GREENBERG MD Chief Complaint: Syncope Stated Complaint: 74 years old female with history of diabetes, hypertension, dyslipidemia comes emergency room with syncopal episode. Patient reports that after coming home from the grocery store she sat in her recliner and when she got up she had syncopal episode. As per the daughter patient hit the back of her head on the fireplace patient does not remember hitting her head. Patient reports that she is getting episodes of hyperventilation since she got COVID. She had a similar syncopal episode 2 years ago. Otherwise she denies any chest pain shortness of breath no nausea or vomiting no changes in bowel or urine. Time Seen by Provider: 02/08/25 17:33 Information Source: Patient and EMT Nursing and Triage Documentation Reviewed and Agree: Yes Opioid Naive vs. Tolerant What is Opioid Naive?: *Opioid Naive implies the patient is not already taking opioids or not chronically receiving opioids on a daily basis. *PRN dosing is not "usually" associated with tolerance. *Patients are at higher risk of over-sedation and aspiration. What is Opioid Tolerant?: *Opioid Tolerance implies less than the expected response to an opioid. *Acquired tolerance is defined by the patient taking 60mg of oral morphine daily (or equianalgesic dose of another opioid) for 1 week or more. *Often associated with chronic pain. *May take more than usual dose to achieve desired pain control. Review of Systems Review Of Systems Constitutional: Reports No symptoms All Other Systems: Reviewed and Negative [facility] Medical History Degenerative disc disease, cervical M50.30 - Other cervical disc degeneration, unspecified cervical region (ICD- 10) Dyslipidemia E78.5 - Hyperlipidemia, unspecified (ICD-10) Diabetes mellitus type 2, controlled E11.9 - Type 2 diabetes mellitus without complications (ICD-10) Hypertension I10 - Essential (primary) hypertension (ICD-10) Family History Mother Parkinsons Mother Breast cancer Social History Smoking and tobacco status: Former smoker Passive smoking exposure: No Quit status: has quit before Surgical History Hx of appendectomy 1995 Z90.49 - Acquired absence of other specified parts of digestive tract (ICD- 10) Female Reproductive History Menstrual Hx Hysterectomy: No Hx Tubal Ligation: No Physical Exam Physical Exam Appearance: Reports Well-appearing Eyes: Reports MIKEY and EOMI ENT: Reports Ears normal and Nose normal Respiratory: Reports Airway patent, Breath sounds clear and Breath sounds equal Cardiovascular: Reports RRR, Pulses normal, No rub and No murmur GI/: Reports Soft, Nontender, No masses and Bowel sounds normal Musculoskeletal: Reports Normal strength, ROM intact and No edema Skin: Reports Warm and Normal color Neurological: Reports Sensation intact, Motor intact, Reflexes intact, Cranial nerves intact, Alert, Oriented and Other (Rapid alternating hand movement normal on both sides muscle power 5/5 in all extremities [id number] test normal bilaterally no localized weakness or sensory deficits) Psychiatric: Reports Affect appropriate Interpretation EKG Interpretation EKG Interpretation By: ED Physician Time of EKG #1: 17:55 Rate: Normal Rhythm: Sinus Ectopy: None [place]: Left ST Segment: Normal Interpretation: no signs of acute ischemia Course Course 02/08/25 18:25 02/08/25 18:25 Orders, Labs, Meds: Lab Review 02/08/25 02/08/25 02/08/25 17:50 18:25 19:00 WBC 12.56 H RBC 4.32 Hgb 11.8 L Hct 37.0 MCV 85.6 MCH 27.3 MCHC 31.9 RDW Coeff of Scarlet 13.7 Plt Count 349 Immature Gran % (Auto) 0.6 Neut % (Auto) 71.2 Lymph % (Auto) 20.1 [place] % (Auto) 6.7 Eos % (Auto) 1.0 Baso % (Auto) 0.4 Neut # (Auto) 9.0 H Lymph # (Auto) 2.5 [place] # (Auto) 0.8 Eos # (Auto) 0.1 Baso # (Auto) 0.1 Immature Gran # (Auto) 0.1 Sodium 135.7 Potassium 3.74 Chloride 102.1 Carbon Dioxide 21.2 L Anion Gap 16.14 BUN 26.5 H Creatinine 1.64 H Estimated GFR (MDRD) 31.00 BUN/Creatinine Ratio 16.15 Glucose 104.3 Calcium 9.63 Total Bilirubin 0.96 AST 30.4 ALT 20.7 Alkaline Phosphatase 103.9 Troponin I < 0.012 Total Protein 8.05 Albumin 4.23 Globulin 3.82 Albumin/Globulin Ratio 1.10 Urine Color Red Urine Clarity Slightly Urine pH 5.0 Ur Specific [place] 1.025 Urine Protein 2+ H Urine Glucose (UA) Trace H Urine Ketones 1+ H Urine Blood Negative Urine Nitrite Positive H Urine Bilirubin 2+ H Urine Urobilinogen 4.0 H Ur Leukocyte Esterase 3+ H Urine Microscopic RBC 0-2 Urine Microscopic WBC 5-10 Ur Squamous Epith Cells 10-20 Urine Bacteria 1+ Urine Opiates Screen Negative Ur Oxycodone Screen Negative Urine Methadone Screen Negative Ur Barbiturates Screen Negative U Tricyclic Antidepress Positive H Ur Phencyclidine Scrn Negative Ur Amphetamine Screen Negative U Methamphetamines Scrn Negative U Benzodiazepines Scrn Negative Urine Cocaine Screen Negative U Cannabinoids Screen Negative Influ A Molecular Assay Negative by naat Influ B Molecular Assay Negative by naat SARS CoV-2 RNA Rapid CHERELLE Negative Orders Category Date Time Status OBSERVATION [PLACE PATIENT OBSERVATION] .TO MEDSURG ADMISSION 02/08/25 19:28 Active (MONITORED BED) EKG-(ED & IP/OBS ONLY) Stat CARDIO 02/08/25 17:33 Completed TELEMETRY MONITORING TELE CARE 02/08/25 19:28 Active IV [ED IV/MEDIPORT/POWERPORT] .ONCE EMERGENCY 02/08/25 17:34 Active Monitor [ED BAG PRESSER APPLIED] .ONCE EMERGENCY 02/08/25 17:34 Active Orthostatic Vital Signs [ED ORTHOSTATIC VITAL SIGNS] . EMERGENCY 02/08/25 19:04 Active ONCE CBC W/ AUTO DIFF Stat LAB 02/08/25 18:25 Completed CMP [COMPREHENSIVE METABOLIC PANEL] Stat LAB 02/08/25 18:25 Completed COVID [SARS COV-2 RNA RAPID CHERELLE] Stat LAB 02/08/25 17:50 Completed DRUG SCREEN (RAPID FOR ED) [DRUG SCREEN, URINE, RAPID] LAB 02/08/25 19:00 Completed Stat FLU A & B MOLECULAR [FLU A/B MOLECULAR] Stat LAB 02/08/25 17:50 Completed TROPONIN I Stat LAB 02/08/25 18:25 Completed URINALYSIS C & S IF INDICATED Stat LAB 02/08/25 19:00 Completed URINE CULTURE Stat LAB 02/08/25 19:00 Received 0.9 % Sodium Chloride [Saline Flush] Meds 02/08/25 17:34 Active 1 syr IVF PRN PRN Ceftriaxone 1 gm Vial [Rocephin 1 gm Vial] Meds 02/08/25 19:16 Discontinued 1 gm IVP ONCE ONE Sodium Chloride 0.9% [Sodium Chloride] 1,000 ml Meds 02/08/25 18:[address] HEAD W/O CONTRAST Stat RADS 02/08/25 17:33 Completed CXR [CHEST, 1V AP ONLY] Stat RADS 02/08/25 17:33 Completed Medications Generic Name Dose Route Start Last Admin Trade Name Freq PRN Reason Stop Dose Admin Acetaminophen 650 mg 02/08/25 19:54 Acetaminophen 325 Mg Tablet PO Q4H PRN Mild Pain Sodium Chloride 1,000 mls @ 75 mls/hr 02/08/25 20:00 Sodium Chloride IV .[id number] CLEO CEFTRIAXONE/D5W 1 GM PREMIX 1 gm in 50 mls @ 100 mls/hr 02/09/25 09:00 Rocephin 1 Gm/50 Ml D5w IV 02/12/25 08:59 DAILY CLEO Ondansetron HCl 4 mg 02/08/25 19:55 Ondansetron Hcl/Pf 4 Mg/2 Ml Sdv IVP Q6H PRN Nausea / Vomiting Sodium Chloride 1 syr 02/08/25 17:34 0.9% Sodium Chloride 10 Ml Disp.Syrin IVF PRN PRN To flush IV Discontinued Medications Generic Name Dose Route Start Last Admin Trade Name Freshantel PRN Reason Stop Dose Admin Ceftriaxone Sodium 1 gm 02/08/25 19:16 02/08/25 19:26 Ceftriaxone 1 Gm Vial IVP 02/08/25 19:17 1 gm ONCE ONE Administration Sodium Chloride 1,000 mls @ 1,000 mls/hr 02/08/25 18:01 02/08/25 19:45 Sodium Chloride IV 02/08/25 19:00 Infused BOLUS ONE Infusion Vital Signs: Temp Pulse Resp BP Pulse Ox 02/08/25 17:34 97.0 F L 84 18 134/66 94 L Patient with syncopal episode EKG showed normal sinus rhythm at 77 no signs of acute ischemia as per my interpretation, troponin is normal, CT head did not show any acute intracranial findings, chest x-ray no acute cardiopulmonary disease as per radiology interpretation. CBC showing leukocytosis with a left shift urinalysis showing UTI CMP showing some dehydration and DEANDRE. Patient's symptoms could be secondary to dehydration or urinary tract infection but will still need to do further workup for her syncopal episode she will need CTA head and neck, but unable to perform at this time due to DEANDRE. Patient also need cardiac echo and further IV antibiotics. Spoke with the hospitalist on-call Fazal discussed the patient case with her and she agreed to admit the patient under her services. Plan of treatment and admission under observation was discussed with the patient and her daughter at bedside and they are agreeable. Discharge Plan Discharge Patient Disposition: PLACED OBSERVATION Discharge Problem: Syncope, Acute UTI, DEANDRE (acute kidney injury) Did you review [place] TYPE SOLDERING MACHINE TENDER for ALL controlled substances?: Not Applicable ED Provider: KIM GREENBERG Condition: Stable
--- NOTE | 2025-02-08 18:00 | CT ---
EXAM: CT BRAIN HISTORY: Syncope TECHNIQUE: CT brain without intravenous contrast. 5-mm axial sections with Reformations. COMPARISON: None FINDINGS: The brain was unremarkable for age without evidence of hemorrhage or recent large vessel distribution ischemic infarction. There is no suggestion of acute hydrocephalus or subdural fluid collection. No mass or mass effect. Carotid siphon and upper vertebral artery atherosclerotic disease noted. Cranium has no acute finding. Mastoid processes are aerated. The visualized paranasal sinuses are clear. IMPRESSION: No acute intracranial process or injury. No fractures identified. - - - - - All CT scans are performed using dose optimization techniques as appropriate to the performed exam and include at least one of the following: Automated exposure control, adjustment of the mA and/or kV according to size, and the use of iterative reconstruction technique.
[2025-02-08 18:33] LABS: IMMATURE GRANULOCYTE # (AUTO) 0.1 (0.0-1.0); IMMATURE GRANULOCYTE % (AUTO) 0.6 % (0.0-5.0); RDW COEFFICIENT OF VARIATION 13.7 % (11.6-14.8)
[2025-02-08] MEDS: SODIUM CHLORIDE 1,000 ML IV ONE (18:35)
[2025-02-08 18:47] LABS: CREATININE 1.64 mg/dL (0.60-1.30)
[2025-02-08 19:07] LABS: MOLECULAR FLU A NEGATIVE BY NAAT (NEGATIVE); MOLECULAR FLU B NEGATIVE BY NAAT (NEGATIVE); SARS COV-2 RNA RAPID NAAT NEGATIVE (NEGATIVE)
[2025-02-08 19:09] LABS: GLUCOSE, URINE (UA) Trace (NEGATIVE); LEUKOCYTE ESTERASE ,URINE 3+ (NEGATIVE); URINE, BLOOD Negative (NEGATIVE)
[2025-02-08 19:12] LABS: URINE RBC, MICROSCOPIC 0-2 (0-2)
[2025-02-08 19:17] LABS: AMPHETAMINE SCREEN,URINE NEGATIVE (NEGATIVE); CANNABINOID SCREEN,URINE NEGATIVE (NEGATIVE); COCAIN SCREEN,URINE NEGATIVE (NEGATIVE); METHADONE URINE SCREEN NEGATIVE (NEGATIVE); METHAMPHETAMINES SCREEN,URINE NEGATIVE (NEGATIVE); OXYCODONE URINE SCREEN NEGATIVE (NEGATIVE); TRICYCLIC ANTIDEPRESSANTS URIN POSITIVE (NEGATIVE)
[2025-02-08] MEDS: ROCEPHIN 1 GM VIAL IVP ONE (19:26)
[2025-02-08] MEDS ORDERED: TYLENOL PO PRN (19:54)
[2025-02-08] MEDS ORDERED: ZOFRAN SDV IVP PRN (19:55)
[2025-02-08] MEDS ORDERED: VENTOLIN HFA IH PRN (21:16)
[2025-02-08] MEDS ORDERED: PRAVACHOL PO SCH (21:31)
[2025-02-08] MEDS: SODIUM CHLORIDE 1,000 ML IV SCH (21:37)
[2025-02-08 22:11] VITALS: BMI 30.7
[2025-02-08] MEDS: FLEXERIL PO SCH (22:29)
[2025-02-08] MEDS: PRAVACHOL PO SCH (23:10)
[2025-02-09 05:06] LABS: IMMATURE GRANULOCYTE # (AUTO) 0.0 (0.0-1.0); IMMATURE GRANULOCYTE % (AUTO) 0.4 % (0.0-5.0); RDW COEFFICIENT OF VARIATION 13.7 % (11.6-14.8)
[2025-02-09 05:31] LABS: CREATININE 1.24 mg/dL (0.60-1.30)
[2025-02-09] MEDS: LEXAPRO PO SCH (08:23)
[2025-02-09] MEDS: HYDROCHLOROTHIAZIDE PO SCH (08:32)
[2025-02-09] MEDS: COZAAR PO SCH (08:39)
[2025-02-09] MEDS ORDERED: PRAVACHOL PO SCH (09:00)
[2025-02-09] MEDS: K-DUR PO ONE (09:58)
--- NOTE | 2025-02-09 13:02 | PCM ---
Date of Service Date Seen by Provider: 02/09/25 Time Seen by Provider: 09:10 Admit Day/Time Admission Date: 02/08/25 Reason for Admission Chief Complaint: SYNCOPE, UTI, DEANDRE Hospital Provider Hospital Provider: ERIK MARIN, [facility] History of Present Illness History of Present Illness: 74 yo female with pmh of HTN, DM2, HLD, and anxiety presented to the ER following a syncopal episode. Patient states that she was at the grocery store and developed dizziness. After sitting in the car and drinking some water, she got to feeling better. She went back home and upon standing to go to the kitchen she became dizzy and passed out for approx. 3-5 minutes. Does have recall of the situation. Did not lose control of bowel or bladder. Denies any chest pain or sob. Hit her head on the fireplace. CT head obtained and negative. Reports since she has had pain on urination. Started taking azo and pain improved. Also had complaints of urgency and frequency at times. Denies fever, chills, body aches. UTI noted on UA. Troponins negative. Admitted to med/surg observation. Per daughter at bedside, she has been having these dizziness episodes for months. Has been taking losartan/HCTZ for 1 year and per PCP notes renal function has been trending up and been encouraged to hydrate better. Case Discussed With Case Discussed With: Patient's case was discussed with the ER Physicians, Dr. Lugo. [facility] Medical History Degenerative disc disease, cervical M50.30 - Other cervical disc degeneration, unspecified cervical region (ICD- 10) Dyslipidemia E78.5 - Hyperlipidemia, unspecified (ICD-10) Diabetes mellitus type 2, controlled E11.9 - Type 2 diabetes mellitus without complications (ICD-10) Hypertension I10 - Essential (primary) hypertension (ICD-10) Surgical History Hx of appendectomy 1995 Z90.49 - Acquired absence of other specified parts of digestive tract (ICD- 10) Family History Mother Parkinsons Mother Breast cancer FATHER Tongue cancer Cancer of neck Colostomy in place Social History Smoking and tobacco status: Former smoker Passive smoking exposure: No Quit status: has quit before Alcohol intake: never Substance use type: does not use Dahiana/cheondoism: ZOROASTRIANISM Special dahiana needs: No Agree to transfusion: Yes Adopted: No Caregiver/support person: No Foster care: No Housing: house Marital status: W / Lives independently: Yes Daycare: no daycare Number of children: 4 Number of grandchildren: 8 Highest education level completed: high school graduate Financial difficulty paying for basics: not very hard service: No assisted: No Current occupational status: retired History of recent travel: No Do you think of yourself as: straight/heterosexual Current gender identity: female Seatbelt use: always Helmet use: Yes Drives intoxicated or rides with intoxicated pack train driver: No Current diet type/program: diabetic Water heater temperature set < 120 degrees: Yes Working smoke detector in home: Yes Fire extinguisher in home: Yes Carbon monoxide detector in home: No Firearms in home: No Allergies Allergies Allergy/AdvReac Type Severity Reaction Status Date / Time erythromycin base Allergy Unknown Rash Verified 02/09/25 07:20 Current Medications Home Medications Acetaminophen (Acetaminophen 325 Mg Tablet) 650 mg PO Q4H PRN PRN Reason: Mild Pain Albuterol Sulfate (Albuterol Sulfate 8 Gm Inhaler) 2 puff IH Q4-6H PRN PRN Reason: Wheezing Cyclobenzaprine HCl (Cyclobenzaprine Hcl 10 Mg Tablet) 10 mg PO BEDTIME CLEO Last Admin: 02/08/25 22:29 Dose: 10 mg Escitalopram Oxalate (Escitalopram Oxalate 10 Mg Tablet) 20 mg PO DAILY CLEO Last Admin: 02/09/25 08:23 Dose: 20 mg Hydrochlorothiazide (Hydrochlorothiazide 25 Mg Tablet) 25 mg PO DAILY LCEO On Hold: 02/09/25 12:55 Last Admin: 02/09/25 08:32 Dose: 25 mg CEFTRIAXONE/D5W 1 GM PREMIX (Rocephin 1 Gm/50 Ml D5w) 1 gm in 50 mls @ 100 mls/hr IV BEDTIME CLEO Stop: 02/10/25 22:00 Losartan Potassium (Losartan Potassium 100 Mg Tablet) 100 mg PO DAILY CLEO On Hold: 02/09/25 12:55 Last Admin: 02/09/25 08:39 Dose: Not Given Ondansetron HCl (Ondansetron Hcl/Pf 4 Mg/2 Ml Sdv) 4 mg IVP Q6H PRN PRN Reason: Nausea / Vomiting Pravastatin Sodium (Pravastatin Sodium 20 Mg Tablet) 20 mg PO BEDTIME CLEO Last Admin: 02/08/25 23:10 Dose: 20 mg Sodium Chloride (0.9% Sodium Chloride 10 Ml Disp.Syrin) 1 syr IVF PRN PRN PRN Reason: To flush IV cyclobenzaprine 10 mg tablet 10 mg PO BEDTIME 12/21/22 [History Confirmed 02/08/25] pravastatin 20 mg tablet 20 mg PO DAILY 12/21/22 [History Confirmed 02/08/25] albuterol sulfate 90 mcg/actuation aerosol inhaler 2 puff inhalation Q4-6H PRN shortness of breath or wheezing #6.7 grams 06/08/23 [Rx Confirmed 02/08/25] losartan 100 mg-hydrochlorothiazide 25 mg tablet 1 tab PO DAILY 04/01/24 [History Confirmed 02/08/25] escitalopram oxalate 20 mg tablet 20 mg PO DAILY 02/08/25 [History Confirmed ] tirzepatide 7.5 mg/0.5 mL subcutaneous pen injector (Mounjaro) 7.5 mg subcut WEEKLY 02/08/25 [History Confirmed 02/08/25] Opioid Naive vs. Tolerant Does Patient Take Opioids?: No Is Patient Opioid Naive?: Yes What is Opioid Naive?: *Opioid Naive implies the patient is not already taking opioids or not chronically receiving opioids on a daily basis. *PRN dosing is not "usually" associated with tolerance. *Patients are at higher risk of over-sedation and aspiration. Is Patient Opioid Tolerant?: No What is Opioid Tolerant?: *Opioid Tolerance implies less than the expected response to an opioid. *Acquired tolerance is defined by the patient taking 60mg of oral morphine daily (or equianalgesic dose of another opioid) for 1 week or more. *Often associated with chronic pain. *May take more than usual dose to achieve desired pain control. Review of Systems Constitutional: Reports No symptoms; Denies Fever, Chills or Sweats Head: Reports Normocephalic Eyes: Reports No symptoms Ears: Reports No symptoms Nose: Reports No symptoms Mouth: Reports No symptoms Throat: Reports No symptoms Cardiovascular: Reports No symptoms Respiratory: Reports No symptoms Gastrointestinal: Reports No symptoms Genitourinary: Reports Dysuria and Frequency Musculoskeletal: Reports No symptoms Endocrine: Reports No symptoms Hematology: Reports No symptoms Immunology: Reports No symptoms Neurological: Reports Dizziness and Syncope Physical examination Most Recent Vital Signs: Most Recent Vital Signs Temperature 97.6 F 02/09/25 10:00 Temperature Source Temporal Artery Scan 02/09/25 10:00 Temperature Source Infrared 02/08/25 17:34 Pulse Rate 70 02/09/25 10:00 Respiratory Rate 16 02/09/25 10:00 Blood Pressure 103/64 02/09/25 10:00 Blood Pressure Mean 77 02/09/25 10:00 Blood Pressure Right Arm 142/69 02/08/25 20:13 Blood Pressure Location Right Arm 02/09/25 10:00 Blood Pressure Position Sitting 02/09/25 08:35 O2 Sat by Pulse Oximetry 96 02/09/25 10:00 Oxygen Delivery Method Room Air 02/09/25 12:00 Height 5 ft 5 in 02/08/25 20:13 Weight 83.7 kg 02/08/25 20:13 Telemetry Type Remote Telemetry 02/09/25 07:00 Telemetry Monitoring Continues 02/09/25 07:00 Irregular Telemetry Rate (Approximate) 60-70 BPM 02/09/25 07:00 Telemetry Heart Rate 69 02/09/25 07:00 EKG DC Interval 0.18 02/09/25 07:00 EKG QRS Interval 0.08 02/09/25 07:00 Telemetry Strip Reading NSR 02/09/25 07:00 Appearance: Positive No Apparent Distress and Alert and Oriented x3 Skin: Positive Warm and Good Color HEENT: Positive Normocephalic and PERRLA Neck: Positive Supple and Midline Trachea Chest/Lungs: Positive Symmetrical With Equal Breath Sounds, Clear to Auscultation Bilaterally and Good Air Movement all 4 Lung Young; Negative Rales, Rhonci or Wheezes Heart: Positive RRR and Pulses Normal; Negative No S3 Auscultated or No S4 Auscultated GI/: Positive Soft, Nontender, Bowel Sounds Normal and No Distention Musculoskeletal: Positive Not Examined Extremities: Positive Intact Peripheral Pulses, Stable Joints Without Laxity and Good ROM in All Joints; Negative Edema Neurological: Positive Sensation Intact, Motor intact, Reflexes Intact, Alert, Oriented and Other (generalized weakness) Labs This Visit Labs This Visit: Labs This Visit 02/08/25 02/08/25 02/08/25 17:50 18:25 19:00 WBC 12.56 H RBC 4.32 Hgb 11.8 L Hct 37.0 MCV 85.6 MCH 27.3 MCHC 31.9 RDW Coeff of Scarlet 13.7 Plt Count 349 Immature Gran % (Auto) 0.6 Neut % (Auto) 71.2 Lymph % (Auto) 20.1 [place] % (Auto) 6.7 Eos % (Auto) 1.0 Baso % (Auto) 0.4 Neut # (Auto) 9.0 H Lymph # (Auto) 2.5 [place] # (Auto) 0.8 Eos # (Auto) 0.1 Baso # (Auto) 0.1 Immature Gran # (Auto) 0.1 Sodium 135.7 Potassium 3.74 Chloride 102.1 Carbon Dioxide 21.2 L Anion Gap 16.14 BUN 26.5 H Creatinine 1.64 H Estimated GFR (MDRD) 31.00 BUN/Creatinine Ratio 16.15 Glucose 104.3 Calcium 9.63 Total Bilirubin 0.96 AST 30.4 ALT 20.7 Alkaline Phosphatase 103.9 Troponin I < 0.012 Total Protein 8.05 Albumin 4.23 Globulin 3.82 Albumin/Globulin Ratio 1.10 TSH 4.240 Urine Color Red Urine Clarity Slightly Urine pH 5.0 Ur Specific [place] 1.025 Urine Protein 2+ H Urine Glucose (UA) Trace H Urine Ketones 1+ H Urine Blood Negative Urine Nitrite Positive H Urine Bilirubin 2+ H Urine Urobilinogen 4.0 H Ur Leukocyte Esterase 3+ H Urine Microscopic RBC 0-2 Urine Microscopic WBC 5-10 Ur Squamous Epith Cells 10-20 Urine Bacteria 1+ Urine Opiates Screen Negative Ur Oxycodone Screen Negative Urine Methadone Screen Negative Ur Barbiturates Screen Negative U Tricyclic Antidepress Positive H Ur Phencyclidine Scrn Negative Ur Amphetamine Screen Negative U Methamphetamines Scrn Negative U Benzodiazepines Scrn Negative Urine Cocaine Screen Negative U Cannabinoids Screen Negative Influ A Molecular Assay Negative by naat Influ B Molecular Assay Negative by naat SARS CoV-2 RNA Rapid CHERELLE Negative 02/08/25 02/09/25 02/09/25 20:18 00:23 04:45 WBC 10.51 H RBC 3.83 L Hgb 10.6 L Hct 32.9 L MCV 85.9 MCH 27.7 MCHC 32.2 RDW Coeff of Scarlet 13.7 Plt Count 295 Immature Gran % (Auto) 0.4 Neut % (Auto) 50.5 Lymph % (Auto) 38.4 [place] % (Auto) 7.6 Eos % (Auto) 2.5 Baso % (Auto) 0.6 Neut # (Auto) 5.3 Lymph # (Auto) 4.0 H [place] # (Auto) 0.8 Eos # (Auto) 0.3 Baso # (Auto) 0.1 Immature Gran # (Auto) 0.0 Sodium 136.6 Potassium 3.44 L Chloride 106.9 Carbon Dioxide 21.5 L Anion Gap 11.64 BUN 23.4 H Creatinine 1.24 Estimated GFR (MDRD) 43.00 BUN/Creatinine Ratio 18.87 Glucose 105.5 Calcium 9.02 Total Bilirubin 0.86 AST 23.0 ALT 17.7 Alkaline Phosphatase 93.9 Troponin I < 0.012 < 0.012 Total Protein 7.32 Albumin 3.86 Globulin 3.46 Albumin/Globulin Ratio 1.11 TSH Urine Color Urine Clarity Urine pH Ur Specific [place] Urine Protein Urine Glucose (UA) Urine Ketones Urine Blood Urine Nitrite Urine Bilirubin Urine Urobilinogen Ur Leukocyte Esterase Urine Microscopic RBC Urine Microscopic WBC Ur Squamous Epith Cells Urine Bacteria Urine Opiates Screen Ur Oxycodone Screen Urine Methadone Screen Ur Barbiturates Screen U Tricyclic Antidepress Ur Phencyclidine Scrn Ur Amphetamine Screen U Methamphetamines Scrn U Benzodiazepines Scrn Urine Cocaine Screen U Cannabinoids Screen Influ A Molecular Assay Influ B Molecular Assay SARS CoV-2 RNA Rapid CHERELLE Microbiology This Visit 02/08/25 19:00 Urine,Random Urine Culture - Preliminary Imaging Imaging: EXAM: CT BRAIN HISTORY: Syncope TECHNIQUE: CT brain without intravenous contrast. 5-mm axial sections with Reformations. COMPARISON: None FINDINGS: The brain was unremarkable for age without evidence of hemorrhage or recent large vessel distribution ischemic infarction. There is no suggestion of acute hydrocephalus or subdural fluid collection. No mass or mass effect. Carotid siphon and upper vertebral artery atherosclerotic disease noted. Cranium has no acute finding. Mastoid processes are aerated. The visualized paranasal sinuses are clear. IMPRESSION: No acute intracranial process or injury. No fractures identified. EKG Interpretation EKG Interpretation: No acute changes. Review Statement Review Statement: I have independently reviewed and interpreted the labs/EKGs/imaging that were ordered by the ER provider. I have reviewed all outside records that are available currently in our EMR including imaging/notes/labs from previous visits. Plan Plan: 1. Syncope - troponins negative x 3, orthostatic vitals Q8H, BP soft and likely due to BP meds and dehydration 2. Dehydration - likely due to diuretic use and inadequate intake, holding diuretic, received IV fluids overnight, encouraging oral hydration today 3. UTI - urine culture pending, rocephin 1G Q24H 4. HTN - holding BP meds due to lower BP 5. HLD - chronic, continue home medications 6. DM2 - takes mounjaro weekly, ADA diet DVT Prophylaxis: Ambulation Time Spent: Greater than 80 minutes spent with patient, 50% of the time spent with this patient was devoted to counseling and coordination of care. Advanced Care Plannin minutes spent discussing advance care planning. Disposition: Admit to: Med/surg Observation Full Code Discussed Plan of Care with Dr. Hunt. Medications Medication Orders: Medications Ordered Category Date Time Status 0.9 % Sodium Chloride [Saline Flush] Meds 02/08/25 17:34 Active 1 syr IVF PRN PRN Acetaminophen [Tylenol] Meds 02/08/25 19:54 Active 650 mg PO Q4H PRN Albuterol Sulfate [Ventolin Hfa] Meds 02/08/25 21:16 Active 2 puff IH Q4-6H PRN WHEEZING Wheezing Ceftriaxone/D5w 1 gm Premix [Rocephin 1 gm/50 ml D5w] Meds 02/09/25 21:00 Active 1 gm in 50 ml IV BEDTIME Cyclobenzaprine HCl [Flexeril] Meds 02/08/25 21:30 Active 10 mg PO BEDTIME Escitalopram Oxalate [Lexapro] Meds 02/09/25 09:00 Active 20 mg PO DAILY Hydrochlorothiazide Meds 02/09/25 09:00 Hold 25 mg PO DAILY Losartan Potassium [Cozaar] Meds 02/09/25 09:00 Hold 100 mg PO DAILY Ondansetron HCl/Pf [Zofran Sdv] Meds 02/08/25 19:55 Active 4 mg IVP Q6H PRN Pravastatin Sodium [Pravachol] Meds 02/08/25 22:30 Active 20 mg PO BEDTIME
[2025-02-09] MEDS ORDERED: MELATONIN PO PRN (14:20)
[2025-02-09] MEDS: ROCEPHIN 1 GM/50 ML D5W 1 GM/50 ML BAG IV SCH (20:47)
[2025-02-10 05:51] LABS: IMMATURE GRANULOCYTE # (AUTO) 0.0 (0.0-1.0); IMMATURE GRANULOCYTE % (AUTO) 0.5 % (0.0-5.0); RDW COEFFICIENT OF VARIATION 13.5 % (11.6-14.8)
[2025-02-10 05:57] LABS: CREATININE 1.03 mg/dL (0.60-1.30)
[2025-02-10 06:06] VITALS: RESP 18; TEMP 98.3
[2025-02-10 08:58] VITALS: BP 116/74; PULSE 79
--- NOTE | 2025-02-10 11:31 | DCSUM ---
Admission Date Admission Date: 02/08/25 Discharge Date Discharge Date: 02/10/25 Admission Diagnosis Admission Diagnosis: 1. Syncope 2. Dehydration Discharge Diagnosis Discharge Diagnosis: 1. Syncope 2. DEANDRE, stage I - resolved 3. UTI - ruled out 4. CAP 5. HTN 6. HLD 7. DM2 Hospital Provider Hospital Provider: KATHY PALMER PA-C, [facility] Primary Care Physician Primary Care Physician: DELMA DEGROOT, DNP,[employer] [facility] Summary of History and Physical Summary of History and Physical: 74 yo female with pmh of HTN, DM2, HLD, and anxiety presented to the ER following a syncopal episode. Patient states that she was at the grocery store and developed dizziness. After sitting in the car and drinking some water, she got to feeling better. She went back home and upon standing to go to the kitchen she became dizzy and passed out for approx. 3-5 minutes. Does have recall of the situation. Did not lose control of bowel or bladder. Denies any chest pain or sob. Hit her head on the fireplace. CT head obtained and negative. Reports since she has had pain on urination. Started taking azo and pain improved. Also had complaints of urgency and frequency at times. Denies fever, chills, body aches. UTI noted on UA. Troponins negative. Admitted to med/surg observation. Per daughter at bedside, she has been having these dizziness episodes for months. Has been taking losartan/HCTZ for 1 year and per PCP notes renal function has been trending up and been encouraged to hydrate better. Hospital Course Subjective: Troponins were negative. No arrhythmias noted on telemetry. She did not have any more episodes of syncope. She was mildly dizzy with standing. After talking with daughter she has been dizzy for the last several months. She was noted to be very mildly orthostatic. She was given fluids and this resolved. Her losartan/HCTZ was held due to being on the very low end of normal blood pressure. Creatinine improved from 1.6-1. Today she is feeling better and at her baseline. However she does describe having these episodes of hyperventilation. She states that they have been happening since she had COVID in 2019 but are becoming more frequent and more severe. She denies any chest pain during these episodes. But she feels as though her vision gets dark and she gets really lightheaded. This is what happened when she passed out this last time. D-dimer was added to her labs and was noted to be elevated. CTA ordered to rule out PE due to her syncopal episode. No PE was noted but they did note a possible pneumonia, describing some nodular opacities. Discussed with patient that her presentation does not clinically correlate with pneumonia, however she would like to go ahead and treat with antibiotics at this time. Encouraged her to follow-up with PCP for repeat imaging to ensure this resolves. Echo has been performed but report still pending, PCP to follow. Daughter also makes an mention of a cyst/enlarged lymph node of left side of patient's neck. Patient states this has been there for months. Advised them to bring up with PCP as well as she may need an ultrasound. Patient was treated with Rocephin initially due to potential UTI however her urine culture shows no growth at this time. Otherwise patient is feeling well and will discharge to home on Levaquin for possible pna and albuterol to trial during her hyperventilation episodes. Patient and daughter agree to plan of care. Appearance: Pleasant, No Apparent Distress and Alert HEENT: MMM and Supple CVS: Other (RRR) Abdomen: Soft, Non-Tender and No Distention Respiratory: No Accessory Muscle Use Extremities: No Edema Vital Signs: Most Recent Vital Signs Temperature 98.3 F 02/10/25 06:00 Temperature Source Tympanic 02/10/25 06:00 Temperature Source Infrared 02/08/25 17:34 Pulse Rate 79 02/10/25 08:44 Respiratory Rate 18 02/10/25 06:00 Blood Pressure 116/74 02/10/25 08:44 Blood Pressure Mean 98 02/10/25 06:00 Blood Pressure Right Arm 142/69 02/08/25 20:13 Blood Pressure Location Right Arm 02/10/25 08:44 Blood Pressure Position Standing 02/10/25 08:44 O2 Sat by Pulse Oximetry 96 02/10/25 06:00 Oxygen Delivery Method Room Air 02/10/25 11:00 Height 5 ft 5 in 02/08/25 20:13 Weight 83.7 kg 02/08/25 20:13 Telemetry Type Remote Telemetry 02/10/25 07:00 Telemetry Monitoring Continues 02/10/25 07:00 Irregular Telemetry Rate (Approximate) 70-80 BPM 02/10/25 07:00 Telemetry Heart Rate 71 02/10/25 07:00 EKG KS Interval 0.17 02/10/25 07:00 EKG QRS Interval 0.07 02/10/25 07:00 Telemetry Strip Reading NSR 02/10/25 07:00 Imaging: EXAM: CT BRAIN HISTORY: Syncope TECHNIQUE: CT brain without intravenous contrast. 5-mm axial sections with Reformations. COMPARISON: None FINDINGS: The brain was unremarkable for age without evidence of hemorrhage or recent large vessel distribution ischemic infarction. There is no suggestion of acute hydrocephalus or subdural fluid collection. No mass or mass effect. Carotid siphon and upper vertebral artery atherosclerotic disease noted. Cranium has no acute finding. Mastoid processes are aerated. The visualized paranasal sinuses are clear. IMPRESSION: No acute intracranial process or injury. No fractures identified. EXAM: CHEST RADIOGRAPH TECHNIQUE: Single frontal chest radiograph. HISTORY: Cough. COMPARISON: 04/14/2024 FINDINGS: The lungs are clear. The heart size is normal. There is no pleural effusion. There is no pneumothorax. IMPRESSION: 1. Normal chest radiograph. CTA CHEST PE PROTOCOL INDICATION: 74-year-old female patient with shortness of breath syncope COMPARISON: CT chest PE protocol 12/21/22 chest radiograph 02/08/2025 TECHNIQUE: Axial CT pulmonary angiogram of the chest following intravenous contrast administration timed for optimal opacification of the pulmonary arterial tree. One or more of the following dose reduction techniques were used: Automated exposure control, adjustment of the mA and/or kV according to patient size, use of iterative reconstruction technique.3D/MIP/VR: Performed. IV Contrast: Administered. FINDINGS: All findings in regards to the lungs refer to series 7.Small nodule in the central right upper lobe image 24 stable. 1.4 cm bubbly nodular opacity of the inferior lateral right upper lobe image 96 is new. Bubbly nodular opacity of the lateral posterior left upper lobe measuring 3.6 cm image 84 is new. There were consolidations of the right lower lobe on the previous examination which have since resolved. The airways are patent and unremarkable. No pneumothorax. No mediastinal or retrocrural lymphadenopathy. No hilar inferior cervical internal mammary or cardiophrenic angle lymphadenopathy. Cardiac size is within normal limits. Trace pericardial effusion. No pleural effusions. Included upper abdomen is unremarkable. No lymphadenopathy. Spondylosis osteoarthrosis. No pulmonary embolism in the main pulmonary artery to some of the segmental branches with other segmental and subsegmental branches suboptimal evaluated. Thoracic aorta is normal in caliber without dissection. IMPRESSION: No pulmonary embolism and the main pulmonary artery to some of the segmental branches with other segmental and subsegmental branches somewhat poorly evaluated. Bubbly nodular opacities in the upper lung lobes most likely representing foci of rounded pneumonia less likely neoplasm. Short-term 3 month follow up recommended to reevaluate. Trace pericardial effusion. Lab Results Last 24 Hours: 02/10/25 05:22 WBC 8.04 RBC 3.93 L Hgb 10.8 L Hct 33.8 L MCV 86.0 MCH 27.5 MCHC 32.0 RDW Coeff of Scarlet 13.5 Plt Count 274 Immature Gran % (Auto) 0.5 Neut % (Auto) 50.7 Lymph % (Auto) 37.2 Seminole % (Auto) 7.8 Eos % (Auto) 2.9 Baso % (Auto) 0.9 Neut # (Auto) 4.1 Lymph # (Auto) 3.0 [place]inole # (Auto) 0.6 Eos # (Auto) 0.2 Baso # (Auto) 0.1 Immature Gran # (Auto) 0.0 Sodium 136.0 Potassium 3.85 Chloride 105.4 Carbon Dioxide 22.3 Anion Gap 12.15 BUN 21.9 H Creatinine 1.03 Estimated GFR (MDRD) 53.00 BUN/Creatinine Ratio 21.26 Glucose 126.5 H Calcium 9.24 Total Bilirubin 0.71 AST 24.7 ALT 17.9 Alkaline Phosphatase 87.5 Total Protein 7.40 Albumin 3.86 Globulin 3.54 Albumin/Globulin Ratio 1.09 Discharge Instructions Discharge Planning: Discharge Planning > [address] Nu Hunt. Discharge Medications: Medications at Discharge (Home Meds & RX) cyclobenzaprine 10 mg tablet 10 mg PO BEDTIME 12/21/22 pravastatin 20 mg tablet 20 mg PO DAILY 12/21/22 escitalopram oxalate 20 mg tablet 20 mg PO DAILY 02/08/25 tirzepatide 7.5 mg/0.5 mL subcutaneous pen injector (Mounjaro) 7.5 mg subcut WEEKLY 02/08/25 albuterol sulfate 90 mcg/actuation aerosol inhaler 2 puff inhalation Q4-6H PRN shortness of breath or wheezing #6.7 grams 02/10/25 levofloxacin 750 mg tablet 750 mg PO DAILY 4 days #4 tabs 02/10/25 Discharge Plan Discharge Discharge Orders: Discharge Patient (ONCE); Ordered 02/10/25 Ordered By: KATHY PALMER Activity Restrictions/Additional Instructions: DISCHARGE TO HOME DX: SYNCOPE, DEANDRE PUSH FLUIDS HOLD LOSARTAN/HCTZ MONITOR BLOOD PRESSURE AT HOME SLOW POSITION CHANGES F/U WITH PCP FOR ECHO RESULTS Care Plan Goals: Problem: Risk for falls Goal: No falls or injury Instructions: Have no throw rugs on the floor Make sure pathway is clear of all objects Use assistance devices if applicable Problem: Activity Intolerance Goal: Demonstrate increased activity intolerance Instructions: Determine cause of activity intolerance Change positions slowly Gradually increase activity Report intolerances to provider Patient Disposition: HOME SELF-CARE Prescriptions: New levofloxacin 750 mg tablet 750 mg PO DAILY 4 Days Qty: 4 0RF Rx Instructions: start 02/11 Continued pravastatin 20 mg tablet 20 mg PO DAILY Patient Comments: TAKE 1 TABLET BY MOUTH DAILY cyclobenzaprine 10 mg tablet 10 mg PO BEDTIME Patient Comments: TAKE 1 TABLET BY MOUTH AT BEDTIME escitalopram oxalate 20 mg tablet 20 mg PO DAILY Mounjaro 7.5 mg/0.5 mL pen injector 7.5 mg SUBCUT WEEKLY Patient Comments: ADMINISTER 7.5 MG UNDER THE SKIN 1 TIME EVERY WEEK DIRECTED albuterol sulfate 90 mcg/actuation HFA aerosol inhaler 2 puff inhalation Q4-6H PRN (Reason: shortness of breath or wheezing) Qty: 6.7 0RF Discontinued losartan-hydrochlorothiazide 100-25 mg tablet 1 tab PO DAILY Did you review [place] [employer] for ALL controlled substances?: Not Applicable Discussed opioids are addictive and Narcan is available by prescription or from pharmacy.: No Condition: Stable Referrals: DELMA DEGROOT, LILA,[employer] [facility] [Primary Care Provider, UNKNOWN] - 02/17/25 9:00 am
[2025-02-10] MEDS: VISIPAQUE 320 MG/ML 100ML IVP ONE (14:11)
[2025-02-10] MEDS: OMNIPAQUE 350 MG/ML 100ML IVP ONE (14:21)
--- NOTE | 2025-02-10 15:03 | CT ---
CTA CHEST PE PROTOCOL INDICATION: 74-year-old female patient with shortness of breath syncope COMPARISON: CT chest PE protocol 12/21/22 chest radiograph 02/08/2025 TECHNIQUE: Axial CT pulmonary angiogram of the chest following intravenous contrast administration timed for optimal opacification of the pulmonary arterial tree. One or more of the following dose reduction techniques were used: Automated exposure control, adjustment of the mA and/or kV according to patient size, use of iterative reconstruction technique. 3D/MIP/VR: Performed. IV Contrast: Administered. FINDINGS: All findings in regards to the lungs refer to series 7.Small nodule in the central right upper lobe image 24 stable. 1.4 cm bubbly nodular opacity of the inferior lateral right upper lobe image 96 is new. Bubbly nodular opacity of the lateral posterior left upper lobe measuring 3.6 cm image 84 is new. There were consolidations of the right lower lobe on the previous examination which have since resolved. The airways are patent and unremarkable. No pneumothorax. No mediastinal or retrocrural lymphadenopathy. No hilar inferior cervical internal mammary or cardiophrenic angle lymphadenopathy. Cardiac size is within normal limits. Trace pericardial effusion. No pleural effusions. Included upper abdomen is unremarkable. No lymphadenopathy. Spondylosis osteoarthrosis. No pulmonary embolism in the main pulmonary artery to some of the segmental branches with other segmental and subsegmental branches suboptimal evaluated. Thoracic aorta is normal in caliber without dissection. IMPRESSION: No pulmonary embolism and the main pulmonary artery to some of the segmental branches with other segmental and subsegmental branches somewhat poorly evaluated. Bubbly nodular opacities in the upper lung lobes most likely representing foci of rounded pneumonia less likely neoplasm. Short-term 3 month follow up recommended to reevaluate. Trace pericardial effusion. All CT scans are performed using dose optimization techniques as appropriate to the performed exam and include at least one of the following: Automated exposure control, adjustment of the mA and/or kV according to size, and the use of iterative reconstruction technique.
[2025-02-10] MEDS: LEVAQUIN PO ONE (15:35)
== END 2025-02-10 15:45 | disposition home or self-care (01) ==
LOC: ED 17:32 → MEDSURG B 17:32
PROVIDERS: ADMIT Hospitalist; ATTEND Physician Assistant